=== PATIENT | male | born 1935 ===

== ENCOUNTER 2019-07-20 19:51 | Emergency (ER) | payer SELFPAY ==
[~2019-07-20] VITALS: Ht 165 cm; Wt 81.8 kg
[2019-07-20 20:17] LABS: BASOPHILS % (AUTO) 0 % (0-10); EOSINOPHILS % (AUTO) 0 % (0-10); HEMATOCRIT 51 % (40-54); HEMOGLOBIN 17.6 G/DL (13.3-17.7); LYMPHOCYTES # (AUTO) 1.1 X 10^3 (1.0-4.0); LYMPHOCYTES % (AUTO) 9 % (12-44); MEAN CORPUSCULAR HEMOGLOBIN 32 PG (25-34); MEAN CORPUSCULAR HGB CONC 34 G/DL (32-36); MEAN CORPUSCULAR VOLUME 92 FL (80-99); MEAN PLATELET VOLUME 10.5 FL (7.4-10.4); MONOCYTES # (AUTO) 0.8 X 10^3 (0.0-1.0); MONOCYTES % (AUTO) 6 % (0-12); NEUTROPHILS # (AUTO) 10.3 X 10^3 (1.8-7.8); NEUTROPHILS % (AUTO) 85 % (42-75); PLATELET COUNT 156 10^3/uL (130-400); RED CELL DISTRIBUTION WIDTH 14.4 % (10.0-14.5); WHITE BLOOD COUNT 12.2 10^3/uL (4.3-11.0)
[2019-07-20 20:27] LABS: INR 1.1 (0.8-1.4); PROTHROMBIN TIME PATIENT 14.7 SEC (12.2-14.7)
[2019-07-20 20:33] LABS: ALANINE AMINOTRANSFERASE 17 U/L (0-55); ALBUMIN 3.9 GM/DL (3.2-4.5); ALKALINE PHOSPHATASE 56 U/L (40-136); BUN/CREATININE RATIO 14; CALCIUM 8.8 MG/DL (8.5-10.1); CARBON DIOXIDE 25 MMOL/L (21-32); CHLORIDE 103 MMOL/L (98-107); CREATININE SERUM 0.85 MG/DL (0.60-1.30); GFR ESTIMATED > 60; GLUCOSE 106 MG/DL (70-105); MAGNESIUM 1.9 MG/DL (1.6-2.4); POTASSIUM 4.3 MMOL/L (3.6-5.0); SODIUM 139 MMOL/L (135-145); TOTAL PROTEIN 6.5 GM/DL (6.4-8.2)
--- NOTE | 2019-07-20 20:43 | Diagnostic Imaging Report ---
INDICATION: Chills and malaise. EXAMINATION: Portable erect AP chest at 8:17 p.m. COMPARISON: There are no prior studies available for comparison. FINDINGS: The heart is enlarged. The central pulmonary vascularity is prominent and this appearance does suggest that there is an element of mild pulmonary congestion present. There is also some increased density in the right infrahilar region and to a lesser extent about the left hilum.. There could be an element of mild coexistent pneumonia/atelectasis in these areas as well. The upper lungs are clear. The mediastinum is normal. The osseous structures are intact. IMPRESSION: 1. There is cardiomegaly and mild pulmonary congestion. There also appears to be pneumonia/atelectasis in the right infrahilar region and about the left hilum. 2. Reportedly, CTA of the chest is pending for further study. Dictated by: Dictated on workstation # [id number]
--- NOTE | 2019-07-20 21:04 | ED Chest Pain ---
General Chief Complaint: Cardiac/General Problems Stated Complaint: CHILLS, L SHOULDER PAIN Nursing Triage Note: chills, malaise, left shoulder pain. Nursing Sepsis Screen: No Definite Risk Source: patient Exam Limitations: no limitations History of Present Illness Date Seen by Provider: Jul 20, 2019 Time Seen by Provider: 21:02 Initial Comments To ER with reports of chills, malaise, left scapular pain, shortness of breath. He has emphysema, he is from [facility], traveling here to see family, he just flew to [place] to see another son and is now here in [place]. He has an oxygen concentrator that he uses at night, he has a nebulizer to use during the day. He's had an increased productive cough over the past few days with chills. Severity/Quality: moderate Location: central Radiation: no radiation Activities at Onset: none ASA po PHYSICIAN SCIENTIST: No NTG SL PHYSICIAN SCIENTIST: No Associated Symptoms: shortness of breath Allergies and Home Medications Allergies Coded Allergies: No Known Drug Allergies (Unverified , 07/20/19) Home Medications Losartan Potassium 50 Mg Tablet, Unknown Dose PO DAILY, (Reported) Patient Home Medication List Home Medication List Reviewed: Yes Review of Systems Review of Systems Constitutional: see HPI EENTM: No Symptoms Reported Respiratory: See HPI, Cough, Shortness of Air Cardiovascular: See HPI Gastrointestinal: No Symptoms Reported Genitourinary: No Symptoms Reported Musculoskeletal: no symptoms reported Skin: no symptoms reported Psychiatric/Neurological: No Symptoms Reported Endocrine: No Symptoms Reported Hematologic/Lymphatic: No Symptoms Reported Past Drgvbfu-Knofkq-Ttspue Hx Patient Social History Alcohol Use: Denies Use Recreational Drug Use: No Smoking Status: Never a Smoker 2nd Hand Smoke Exposure: No Recent Foreign Travel: Yes ([facility] citizen) Contact w/Someone Who Travel: Yes Recent Infectious Disease Expo: No Recent Hopitalizations: No Physical Abuse: No Sexual Abuse: No Mistreated: No Fear: No Immunizations Up To Date Tetanus Booster (TDap): Unknown Seasonal Allergies Seasonal Allergies: No Past Medical History Surgeries: Yes Prostatectomy Respiratory: Yes Emphysema Cardiac: Yes Hypertension Neurological: No Genitourinary: Yes Benign Prostatic Hyperpl Gastrointestinal: No Musculoskeletal: No Endocrine: No HEENT: No Cancer: No Psychosocial: No Integumentary: No Blood Disorders: No Physical Exam Vital Signs Vital Signs - First Documented 07/20/19 19:57 Temp 36.9 Pulse 66 Resp 18 B/P (MAP) 147/87 (107) Pulse Ox 92 O2 Delivery Room Air Capillary Refill : Less Than 3 Seconds Height, Weight, BMI Height: '" Weight: lbs. oz. kg; 30.00 BMI Method: General Appearance: No Apparent Distress, WD/WN Neck: Full Range of Motion, Normal Inspection Respiratory: No Accessory Muscle Use, No Respiratory Distress, Decreased Breath Sounds; No Respiratory Distress Cardiovascular: Regular Rate, Rhythm, Normal Peripheral Pulses Gastrointestinal: Normal Bowel Sounds, Non Tender, Soft Neurologic/Psychiatric: Alert, Oriented x3 Skin: Normal Color, Warm/Dry Progress/Results/Core Measures Results/Orders Lab Results Laboratory Tests Test 07/20/19 20:07 Range/Units White Blood Count 12.2 H 4.3-11.0 10^3/uL Red Blood Count 5.59 4.35-5.85 10^6/uL Hemoglobin 17.6 13.3-17.7 G/DL Hematocrit 51 40-54 % Mean Corpuscular Volume 92 80-99 FL Mean Corpuscular Hemoglobin 32 25-34 PG Mean Corpuscular Hemoglobin Concent 34 32-36 G/DL Red Cell Distribution Width 14.4 10.0-14.5 % Platelet Count 156 130-400 10^3/uL Mean Platelet Volume 10.5 H 7.4-10.4 FL Neutrophils (%) (Auto) 85 H 42-75 % Lymphocytes (%) (Auto) 9 L 12-44 % Monocytes (%) (Auto) 6 0-12 % Eosinophils (%) (Auto) 0 0-10 % Basophils (%) (Auto) 0 0-10 % Neutrophils # (Auto) 10.3 H 1.8-7.8 X 10^3 Lymphocytes # (Auto) 1.1 1.0-4.0 X 10^3 Monocytes # (Auto) 0.8 0.0-1.0 X 10^3 Eosinophils # (Auto) 0.0 0.0-0.3 10^3/uL Basophils # (Auto) 0.0 0.0-0.1 10^3/uL Prothrombin Time 14.7 12.2-14.7 SEC INR Comment 1.1 0.8-1.4 Activated Partial Thromboplast Time 34 24-35 SEC Sodium Level 139 135-145 MMOL/L Potassium Level 4.3 3.6-5.0 MMOL/L Chloride Level 103 98-107 MMOL/L Carbon Dioxide Level 25 21-32 MMOL/L Anion Gap 11 5-14 MMOL/L Blood Urea Nitrogen 12 7-18 MG/DL Creatinine 0.85 0.60-1.30 MG/DL Estimat Glomerular Filtration Rate > 60 BUN/Creatinine Ratio 14 Glucose Level 106 H 70-105 MG/DL Calcium Level 8.8 8.5-10.1 MG/DL Corrected Calcium 8.9 8.5-10.1 MG/DL Magnesium Level 1.9 1.6-2.4 MG/DL Total Bilirubin 1.0 0.1-1.0 MG/DL Aspartate Amino Transf (AST/SGOT) 19 5-34 U/L Alanine Aminotransferase (ALT/SGPT) 17 0-55 U/L Alkaline Phosphatase 56 40-136 U/L Myoglobin 47.7 10.0-92.0 NG/ML Troponin I < 0.028 <0.028 NG/ML B-Type Natriuretic Peptide 200.9 H <100.0 PG/ML Total Protein 6.5 6.4-8.2 GM/DL Albumin 3.9 3.2-4.5 GM/DL Micro Results Microbiology 07/20/19 Influenza Types A,B Antigen (MEL) - Final, Complete My Orders Orders - CHAPARRITA HUNTER MEDICAL REGISTRAR BNP (07/20/19 21:01) Azithromycin Tablet (Zithromax Tablet) (07/20/19 21:15) Ceftriaxone For Iv Use (Rocephin For I (07/20/19 21:15) Ct Angio Chest W (07/20/19 21:02) Iohexol Injection (Omnipaque 350 Mg/Ml 1 (07/20/19 21:30) Received Contrast (Hold Metformin- Contr (07/20/19 21:30) Ns (Ivpb) (Sodium Chloride 0.9% Ivpb Bag (07/20/19 21:30) Medications Given in ED Current Medications Medications Dose Ordered Sig/Farhan Route Start Time Stop Time Status Last Admin Dose Admin Ceftriaxone Sodium 1000 mg/ Sterile Water 10 ml @ 200 mls/hr ONCE ONCE IV 07/20/19 21:15 07/20/19 21:17 DC 07/20/19 21:11 200 MLS/HR Iohexol 150 ml ONCE ONCE IV 07/20/19 21:30 07/20/19 21:35 DC 07/20/19 21:27 150 ML Sodium Chloride 100 ml ONCE ONCE IV 07/20/19 21:30 07/20/19 21:35 DC 07/20/19 21:27 80 ML Vital Signs/I&O 07/20/19 07/20/19 19:57 20:07 Temp 36.9 Pulse 66 Resp 18 B/P (MAP) 147/87 (107) Pulse Ox 92 92 O2 Delivery Room Air Room Air Blood Pressure Mean: 107 Departure Impression Primary Impression: Pneumonia Qualified Codes: J18.1 - Lobar pneumonia, unspecified organism Disposition: HOME, SELF-CARE Condition: Stable (will1) Departure-Patient Inst. Decision time for Depature: 22:29 Referrals: NO,LOCAL PHYSICIAN (PCP/Family) Primary Care Physician Patient Instructions: Community-Acquired Pneumonia in Adults Add. Discharge Instructions: 1. Return to ER for any concerns 2. Medication as directed 3. All discharge instructions reviewed with patient and/or family. Voiced understanding. Scripts Prednisone (Prednisone) 20 Mg Tab 40 MG PO DAILY, #8 TAB Prov: CHAPARRITA HUNTER APRN 07/20/19 Azithromycin (Zithromax) 250 Mg Tablet 250 MG PO DAILY, #4 TAB Prov: CHAPARRITA HUNTER APRN 07/20/19 Amoxicillin (Amoxicillin) 500 Mg Tablet 1000 MG PO TID, #42 TAB Prov: CHAPARRITA HUNTER APRN 07/20/19 CHAPARRITA HUNTER APRN Jul 20, 2019 21:04
[2019-07-20] MEDS ORDERED: LOSA50TA63 PO (21:14)
[2019-07-20] MEDS ORDERED: cefTRIAXone FOR IV USE 1,000 MG in WATER (STERILE) FOR INJECTION 10 ML IV ONE (21:15)
[2019-07-20] MEDS ORDERED: AZITHROMYCIN 250 MG TAB (ZITHROMAX) PO SCH (21:15)
[2019-07-20] MEDS ORDERED: IOHEXOL 350 MG/ML 150 ML (OMNIPAQUE 350) VIAL IV ONE (21:30)
[2019-07-20] MEDS ORDERED: HOLD METFORMIN - RECEIVED CONTRAST 20 ML VIAL IV SCH (21:30)
[2019-07-20] MEDS ORDERED: NS 100 ML (IVPB) BAG IV ONE (21:30)
--- NOTE | 2019-07-20 22:24 | Diagnostic Imaging Report ---
PROCEDURE: CT angiography of the chest with contrast. TECHNIQUE: Multiple contiguous axial images were obtained through the chest after uneventful bolus administration of intravenous contrast. 3D reconstructed CTA MIP acquisitions were also performed. Auto Exposure Controls were utilized during the CT exam to meet ALARA standards for radiation dose reduction. INDICATION: Chills, sweats. COMPARISON: There are no prior CT chest examinations available for comparison. FINDINGS: There is no defect within the pulmonary arteries to indicate a pulmonary embolus. The aorta is not abnormally dilated and there is no sign of a dissection. The heart is enlarged and coronary artery calcifications are evident. There is a prominent alveolar/interstitial infiltrate involving the right lung base. Most likely this is secondary to pneumonia/atelectasis. There is also some pneumonia/atelectasis about the right hilum. In addition, there is a poorly defined 2.9 x 3.9 cm right hilar mass. There is also a similar-appearing 1.0 x 4.7 cm left hilar mass. A 1.2 x 4.5 cm band of increased density is also evident in the left hilar region. These abnormal hilar densities could be related to reactive adenopathy secondary to pneumonia/atelectasis. The possibility that they are neoplastic in nature would be less likely since they are bilateral but should still be considered. The thyroid gland is not well visualized due to streak artifact. There does appear to be a few subcentimeter low density nodules in each lobe. If further study is desired, then ultrasound would be recommended. The sections through the upper abdomen failed to show any sign of an acute abnormality. The bone windows are unremarkable for a fracture or for a destructive lesion. IMPRESSION: 1. There is cardiomegaly and a prominent area of pneumonia/atelectasis in the right lung base. There is also some pneumonia/atelectasis about the right hilum. 2. The abnormal hilar densities could be related to reactive adenopathy. The possibility that there is an underlying neoplastic process should certainly be considered. A pulmonary consult would be recommended. 3. There is no evidence for a pulmonary embolus or for dissection. Dictated by: Dictated on workstation # [id number]
[2019-07-20] MEDS ORDERED: AZIT250T PO (22:32)
[2019-07-20] MEDS ORDERED: PRD20T PO (22:32)
[2019-07-20] MEDS ORDERED: AMOX500T2 PO (22:32)
[2019-07-20 22:34] VITALS: BP 126/83
== END 2019-07-20 22:37 | disposition home or self-care (01) ==
LOC: EDBD 19:53 → ER 19:53
DX: J18.9 Pneumonia, unspecified organism (principal); J43.9 Emphysema, unspecified; I10 Essential (primary) hypertension; N40.0 Benign prostatic hyperplasia without lower urinary tract symptoms
CPT/HCPCS: 36415; 71045; 71275; 80053; 83735; 83874; 83880; 84484; 85025; 85610; 85730; 87804; 93005; 93041

== ENCOUNTER 2022-07-22 13:27 | Observation (INO) | payer OTHER ==
[~2022-07-22] VITALS: Ht 165.1 cm; Wt 81.8 kg
[~2022-07-22 13:27] MED LIST: AMOX500T2 PO; AZIT250T PO; LOSA50TA63 PO; PRD20T PO
[2022-07-22] MEDS ORDERED: NS IV 500 ML 500 ML IV ONE (14:15)
[2022-07-22] MEDS ORDERED: fentaNYL INJ 100 MCG/2 ML AMP IVP ONE (14:15)
[2022-07-22 14:16] LABS: BASOPHILS % (AUTO) 0 % (0-10); EOSINOPHILS % (AUTO) 0 % (0-10); HEMOGLOBIN 17.1 g/dL (13.3-17.7); LYMPHOCYTES # (AUTO) 0.6 10^3/uL (1.0-4.0); MEAN CORPUSCULAR HGB CONC 33 g/dL (32-36); MEAN CORPUSCULAR VOLUME 93 fL (80-99)
--- NOTE | 2022-07-22 14:16 | ED Cough/URI ---
General Chief Complaint: COVID19 Suspect/Confirmed Stated Complaint: BODY ACHES/COUGH Nursing Triage Note: ARRIVED VIA AMB TO ROOM 10 WITH COMPLAINTS OF COUGH, X2 DAYS, SOA, BODY ACHES, AND DIARRHEA STARTING TODAY. Source: patient Exam Limitations: no limitations (NOE PRIETO APRN) History of Present Illness Date Seen by Provider: Jul 22, 2022 Time Seen by Provider: 14:10 Initial Comments This is a 87 yo non Romanian speaking male who presented to the ER via POV with son for c/o cough, body aches, abdominal pain, and diarrhea for past two days. He is visiting family from [place] and has no local PCP. Does have history of COPD and A-fib, takes Eliquis BID. He wears oxygen at bedtime and PRN for SOA. Has concentrator at home. Decreased appetite, still drinking fluids well. Feels bloated with left lower abdominal pain. Unknown color of stool. (NOE PRIETO APRN) Allergies and Home Medications Allergies Coded Allergies: No Known Drug Allergies (Unverified , 07/22/22) Patient Home Medication List Home Medication List Reviewed: Yes (NOE PRIETO APRN) Enalapril Maleate (Enalapril Maleate) 20 Mg Tablet, 20 MG PO NEEDED, (Reported) Entered as Reported by: GITA MOHR on 07/22/221627 Last Action: New Order Fluticasone/Umeclidin/Vilanter (Trelegy Ellipta 100-62.5-25) 100-62.5 Blst.w.dev, 1 EACH IH DAILY, (Reported) Entered as Reported by: GITA MOHR on 07/22/221627 Last Action: New Order Tamsulosin HCl (Flomax) 0.4 Mg Cap, 0.4 MG PO DAILY, (Reported) Entered as Reported by: GITA MOHR on 07/22/221627 Last Action: New Order [eliquis] , BID, (Reported) Entered as Reported by: GITA MOHR on 07/22/221627 Last Action: New Order Review of Systems Review of Systems Constitutional: chills, fever, malaise, weakness EENTM: no symptoms reported Respiratory: no symptoms reported, cough, dyspnea on exertion Gastrointestinal: LLQ, abdominal pain, diarrhea; No nausea, No vomiting Genitourinary: no symptoms reported Musculoskeletal: no symptoms reported Skin: no symptoms reported Psychiatric/Neurological: No Symptoms Reported Hematologic/Lymphatic: No Symptoms Reported Immunological/Allergic: no symptoms reported (NOE PRIETO APRN) Past Vlvspoj-Bguopj-Wenqfg Hx Patient Social History Tobacco Use?: No Substance use?: No Alcohol Use?: No (NOE PRIETO APRN) Immunizations Up To Date COVID19 Vaccine Order Department Supervisor: UNKNOWN (NOE PRIETO APRN) Physical Exam Vital Signs - First Documented 07/22/22 13:45 Temp 36.6 Pulse 78 Resp 20 B/P (MAP) 149/90 (109) Pulse Ox 85 O2 Delivery Room Air (ABELARDO SEPULVEDA MD) Capillary Refill : Less Than 3 Seconds (NOE PRIETO APRN) Height: '" Weight: lbs. oz. kg; 29.00 BMI Method: General Appearance: WD/WN, no apparent distress Eyes: Bilateral Eye Normal Inspection, Bilateral Eye PERRL, Bilateral Eye EOMI HEENT: PERRL/EOMI, normal ENT inspection, pharynx normal Neck: full range of motion, normal inspection Respiratory: no respiratory distress, no accessory muscle use, rhonchi Cardiovascular: no edema, no murmur, irregularly irregular Gastrointestinal: normal bowel sounds, distended, tenderness (LLQ) Extremities: normal range of motion, normal inspection, normal capillary refill Neurologic/Psychiatric: no motor/sensory deficits, alert, normal mood/affect, oriented x 3 Skin: normal color, warm/dry (NOE PRIETO APRN) Progress/Results/Core Measures Suspected Sepsis SIRS Temperature: Pulse: 78 Respiratory Rate: 20 Laboratory Tests 07/22/22 14:05: White Blood Count 10.1 Blood Pressure 149 /90 Mean: 109 Laboratory Tests 07/22/22 14:05: Creatinine 0.69, INR Comment 1.2, Platelet Count 139, Total Bilirubin 1.2H (NOE PRIETO APRN) Results/Orders Lab Results Laboratory Tests Test 07/22/22 13:50 07/22/22 14:05 07/22/22 15:00 Range/Units Influenza Type A (RT-PCR) Not Detected Not Detecte Influenza Type B (RT-PCR) Not Detected Not Detecte SARS-CoV-2 RNA (RT-PCR) Not Detected Not Detecte White Blood Count 10.1 4.3-11.0 10^3/uL Red Blood Count 5.61 H 4.30-5.52 10^6/uL Hemoglobin 17.1 13.3-17.7 g/dL Hematocrit 52 40-54 % Mean Corpuscular Volume 93 80-99 fL Mean Corpuscular Hemoglobin 31 25-34 pg Mean Corpuscular Hemoglobin Concent 33 32-36 g/dL Red Cell Distribution Width 14.5 10.0-14.5 % Platelet Count 139 130-400 10^3/uL Mean Platelet Volume 10.4 9.0-12.2 fL Immature Granulocyte % (Auto) 0 % Neutrophils (%) (Auto) 85 H 42-75 % Lymphocytes (%) (Auto) 6 L 12-44 % Monocytes (%) (Auto) 8 0-12 % Eosinophils (%) (Auto) 0 0-10 % Basophils (%) (Auto) 0 0-10 % Neutrophils # (Auto) 8.6 H 1.8-7.8 10^3/uL Lymphocytes # (Auto) 0.6 L 1.0-4.0 10^3/uL Monocytes # (Auto) 0.8 0.0-1.0 10^3/uL Eosinophils # (Auto) 0.0 0.0-0.3 10^3/uL Basophils # (Auto) 0.0 0.0-0.1 10^3/uL Immature Granulocyte # (Auto) 0.0 0.0-0.1 10^3/uL Neutrophils % (Manual) 83 % Lymphocytes % (Manual) 8 % Monocytes % (Manual) 6 % Eosinophils % (Manual) 0 % Basophils % (Manual) 0 % Band Neutrophils 3 % Percent Immature Platelet Fraction 5.6 0.0-7.6 % Blood Morphology Comment NORMAL Prothrombin Time 15.7 H 12.2-14.7 SEC INR Comment 1.2 0.8-1.4 Sodium Level 137 135-145 MMOL/L Potassium Level 4.1 3.6-5.0 MMOL/L Chloride Level 102 98-107 MMOL/L Carbon Dioxide Level 26 21-32 MMOL/L Anion Gap 9 5-14 MMOL/L Blood Urea Nitrogen 10 7-18 MG/DL Creatinine 0.69 0.60-1.30 MG/DL Estimat Glomerular Filtration Rate 88 BUN/Creatinine Ratio 14 Glucose Level 126 H 70-105 MG/DL Calcium Level 8.8 8.5-10.1 MG/DL Corrected Calcium 9.0 8.5-10.1 MG/DL Total Bilirubin 1.2 H 0.1-1.0 MG/DL Aspartate Amino Transf (AST/SGOT) 18 5-34 U/L Alanine Aminotransferase (ALT/SGPT) 15 0-55 U/L Alkaline Phosphatase 56 40-136 U/L C-Reactive Protein High Sensitivity 6.85 H 0.00-0.50 MG/DL B-Type Natriuretic Peptide 177.7 H <100.0 PG/ML Total Protein 7.1 6.4-8.2 GM/DL Albumin 3.8 3.2-4.5 GM/DL Procalcitonin 0.02 <0.10 NG/ML Urine Color YELLOW Urine Clarity CLEAR Urine pH 5.5 5-9 Urine Specific [place] 1.025 H 1.016-1.022 Urine Protein TRACE H NEGATIVE Urine Glucose (UA) NEGATIVE NEGATIVE Urine Ketones NEGATIVE NEGATIVE Urine Nitrite NEGATIVE NEGATIVE Urine Bilirubin 1+ H NEGATIVE Urine Urobilinogen 2.0 < = 1.0 MG/DL Urine Leukocyte Esterase NEGATIVE NEGATIVE Urine RBC (Auto) TRACE-I H NEGATIVE Urine RBC 0-2 /HPF Urine WBC 2-5 /HPF Urine Squamous Epithelial Cells NONE /HPF Urine Renal Epithelial Cells NONE /HPF Urine Crystals NONE /LPF Urine Bacteria NEGATIVE /HPF Urine Casts NONE /LPF Urine Mucus LARGE H /LPF Urine Culture Indicated NO (ABELARDO SEPULVEDA MD) Medications Given in ED Current Medications Medications Dose Ordered Sig/Farhan Route Start Time Stop Time Status Last Admin Dose Admin Cefepime HCl 1000 mg/Sodium Chloride 50 ml @ 100 mls/hr ONCE ONCE IV 07/22/22 16:00 07/22/22 16:29 DC 07/22/22 16:07 100 MLS/HR Fentanyl Citrate 50 mcg ONCE ONCE IVP 07/22/22 14:15 07/22/22 14:16 DC 07/22/22 14:23 50 MCG Iohexol 100 ml ONCE ONCE IV 07/22/22 14:45 07/22/22 14:47 DC 07/22/22 15:09 80 ML Meclizine HCl 25 mg ONCE ONCE PO 07/22/22 15:45 07/22/22 15:46 DC 07/22/22 15:48 25 MG Sodium Chloride 10 ml NEEDED PRN IV 07/22/22 14:45 07/22/22 15:09 10 ML Sodium Chloride 100 ml ONCE ONCE IV 07/22/22 14:45 07/22/22 14:47 DC 07/22/22 15:09 80 ML Sodium Chloride 500 ml @ 0 mls/hr Q0M ONCE IV 07/22/22 14:15 07/22/22 14:16 DC 07/22/22 14:22 1,000 MLS/HR (ABELARDO SEPULVEDA MD) Vital Signs/I&O 07/22/22 07/22/22 07/22/22 13:45 14:00 14:23 Temp 36.6 36.6 Pulse 78 Resp 20 B/P (MAP) 149/90 (109) Pulse Ox 85 O2 Delivery Room Air Room Air (ABELARDO SEPULVEDA MD) Vital Signs/I&O Capillary Refill : Less Than 3 Seconds (NOE PRIETO APRN) Blood Pressure Mean: 109 Progress Note : Progress Note Patient examined and no acute distress. Son at bedside as rod pointer. Took Gas- X at home with some relief of abdominal distention. He is in a-fib, rate controlled 60's. Takes Eliquis BID. COVID, Flu, basic labs, CXR, and CT abd/pelvis with ordered. Labs reviewed. No elevation in WBC, noted to have multi focal pneumonia with right pleural effusion. Added procalcitonin. No SIRS criteria. Given Cefepime 1GM IV in ED. Discussed with Dr. Lewis, will admit observation for pneumonia. (NOE PRIETO APRN) ECG Initial ECG Impression Date: Jul 22, 2022 Initial ECG Impression Time: 14:33 Initial ECG Rate: 66 Initial ECG Rhythm: A Fib/Flutter Initial ECG Impression: Atrial Fibrillation Initial ECG Comparisson: No Previous ECG Available (NOE PRIETO APRN) Diagnostic Imaging Comments [facility]. [place], [place] NAME: ANABELMOTLEY P MED REC#: [id number] PT STATUS: REG ER : 1935 PHYSICIAN: NOE PRIETO APRN ADMIT DATE: 07/22/22/ER Draft Date of Exam:07/22/22 CT ABDOMEN/PELVIS W PROCEDURE: CT abdomen and pelvis with contrast. TECHNIQUE: Multiple contiguous axial images were obtained through the abdomen and pelvis after administration of intravenous contrast. Auto Exposure Controls were utilized during the CT exam to meet ALARA standards for radiation dose reduction. All CT scans use one or more of the following dose optimizing techniques: automated exposure control, MA and/or KvP adjustment based on patient size and exam type or iterative reconstruction. INDICATION: Cough, body pain, diarrheal state. COMPARISON: No priors. FINDINGS: Left colon and much of the transverse colon are nondistended, limiting evaluation of the cabrales at those levels. No obvious wall thickening and no appreciable pericolonic edema or stranding. There is no diverticulitis and there is no large bowel liquid stool load. There is no free air. No obstruction. Liver, gallbladder, bile ducts, spleen, adrenals, and pancreas are unremarkable. We acknowledge sensitivity limitation by motion artifact but an acute-appearing abdominopelvic abnormality is not identified. The appendix is normal. There is atherosclerotic disease without aneurysm, thrombus, or end-organ ischemia. There is no ascites, abscess, hematoma, or acute fluid collection. There is a right pleural effusion, nonloculated, layering to a depth of 6.2 cm. There is some left basilar nonspecific groundglass infiltrate and/or atelectasis. IMPRESSION: No acute-appearing abdominopelvic abnormality. Right pleural effusion and nonspecific left basilar infiltrate or atelectasis. Dictated on workstation # [id number] Dict: 07/22/22 1514 Trans: 07/22/22 1526 [id number] Interpreted by: MADALYN CUEVAS Electronically signed by: Comments [facility] [place], [place] NAME: GISEL LITTLEJosé Jacques MED REC#: [id number] PT STATUS: REG ER : 1935 PHYSICIAN: NOE PRIETO TUNNEL MINER ADMIT DATE: 07/22/22/ER Draft Date of Exam:07/22/22 CHEST 1 VIEW, AP/PA ONLY INDICATION: Cough and body aches. TECHNIQUE: Frontal chest obtained at 02:57 p.m. COMPARISON: There is no prior study for comparison. FINDINGS: There is cardiomegaly. There is extensive infiltrate throughout the left lung. There is some right perihilar and basilar infiltrate as well. There is no pneumothorax. IMPRESSION: Marked cardiomegaly. Extensive infiltrate throughout the left lung with perihilar infiltrate on the right side as well. Consider follow-up chest or chest CT for further evaluation. Dictated on workstation # [id number] Dict: 07/22/22 1459 Trans: 07/22/22 1503 [facility] [id number] Interpreted by: EDER ECHAVARRIA MD Electronically signed by: Esther SANC[facility] [place] [place] NAME: TIESHA LITTLE [facility] REC#: [id number] PT STATUS: REG ER : 1935 PHYSICIAN: NOE PRIETO APRN ADMIT DATE: 07/22/22/ER Draft Date of Exam:07/22/22 CT CHEST WO PROCEDURE: CT chest without contrast. TECHNIQUE: Multiple contiguous axial images were obtained through the chest without the use of intravenous contrast. Auto Exposure Controls were utilized during the CT exam to meet ALARA standards for radiation dose reduction. INDICATION: Infiltrates. FINDINGS: Right pleural effusion is nonloculated. There is patchy ground-glass infiltrate in the left lower lobe. There is more dense consolidation throughout the left upper lobe with tapering and narrowing of the left upper lobe and lingular bronchus. There is more patchy infiltrate in the superior segment of the right lower lobe. There is endobronchial debris within bilateral central airways suggestive of multifocal mucus plugging. There is a component of atelectasis in the left greater than right upper lobes. There is no pneumothorax. There are coronary and aortic atherosclerotic vascular calcifications, nonaneurysmal. There are no findings of pulmonary abscess. IMPRESSION: 1. Bilateral infiltrates and zones of atelectasis with bronchial wall calcifications, thickening, and likely some zones of mucus plugging. Multifocal pneumonia and partial atelectasis presumed. There is a nonloculated right pleural effusion. There are no findings of abscess or features of empyema. Atherosclerotic aorta nonaneurysmal. 2. Visualized upper abdomen nonacute. Dictated on workstation # [id number] Dict: 07/22/22 1519 Trans: 07/22/22 1532 [id number] Interpreted by: MADALYN CUEVAS Electronically signed by: (NOE PRIETO TUNNEL MINER) Departure Communication (Admissions) Time/Spoke to Admitting Phy: 16:00 Dr. Lewis (NOE PRIETO APRN) Impression Primary Impression: Community acquired pneumonia Disposition: ADMITTED INPATIENT Condition: Stable Admissions Decision to Admit Reason: Admit from ER (General) Decision to Admit/Date: Jul 22, 2022 Time/Decision to Admit Time: 15:49 (NOE PRIETO APRN) Departure-Patient Inst. Referrals: NO,LOCAL PHYSICIAN (PCP/Family) Primary Care Physician ATTENDING PHYSICIAN NOTE: I was physically present as attending physician in the emergency department during the care of this patient, but I was not directly involved in the decision making or delivery of care for this patient. (ABELARDO SEPULVEDA MD) NOE PRIETO APRN Jul 22, 2022 14:16 ABELARDO SEPULVEDA MD Jul 22, 2022 20:19
[2022-07-22 14:17] LABS: HEMATOCRIT 52 % (40-54); LYMPHOCYTES % (AUTO) 6 % (12-44); MEAN CORPUSCULAR HEMOGLOBIN 31 pg (25-34); MEAN PLATELET VOLUME 10.4 fL (9.0-12.2); MONOCYTES # (AUTO) 0.8 10^3/uL (0.0-1.0); MONOCYTES % (AUTO) 8 % (0-12); NEUTROPHILS # (AUTO) 8.6 10^3/uL (1.8-7.8); NEUTROPHILS % (AUTO) 85 % (42-75); PLATELET COUNT 139 10^3/uL (130-400); WHITE BLOOD COUNT 10.1 10^3/uL (4.3-11.0)
[2022-07-22 14:21] LABS: ALBUMIN 3.8 GM/DL (3.2-4.5); POTASSIUM 4.1 MMOL/L (3.6-5.0)
[2022-07-22 14:22] LABS: CALCIUM 8.8 MG/DL (8.5-10.1)
[2022-07-22 14:23] LABS: TOTAL PROTEIN 7.1 GM/DL (6.4-8.2)
[2022-07-22 14:25] LABS: BILIRUBIN,TOTAL 1.2 MG/DL (0.1-1.0)
[2022-07-22 14:27] LABS: CREATININE SERUM 0.69 MG/DL (0.60-1.30)
[2022-07-22 14:28] LABS: INR 1.2 (0.8-1.4); PROTHROMBIN TIME PATIENT 15.7 SEC (12.2-14.7)
[2022-07-22] MEDS ORDERED: IOHEXOL 350 MG/ML 100 ML (OMNIPAQUE 350) VIAL IV ONE (14:45)
[2022-07-22] MEDS ORDERED: HOLD METFORMIN - RECEIVED CONTRAST 20 ML VIAL IV SCH (14:45)
[2022-07-22] MEDS ORDERED: CATHETER FLUSH 10 ML SYR IV PRN (14:45)
[2022-07-22] MEDS ORDERED: NS 100 ML (IVPB) BAG IV ONE (14:45)
[2022-07-22 14:50] LABS: BAND NEUTROPHILS 3 %; BASOPHILS % (MANUAL) 0 %; EOSINOPHILS % (MANUAL) 0 %; LYMPHOCYTES % (MANUAL) 8 %; MONOCYTES % (MANUAL) 6 %; NEUTROPHILS % (MANUAL) 83 %
[2022-07-22 14:51] LABS: RBC MORPH NORMAL
--- NOTE | 2022-07-22 15:04 | Diagnostic Imaging Report ---
INDICATION: Cough and body aches. TECHNIQUE: Frontal chest obtained at 02:57 p.m. COMPARISON: There is no prior study for comparison. FINDINGS: There is cardiomegaly. There is extensive infiltrate throughout the left lung. There is some right perihilar and basilar infiltrate as well. There is no pneumothorax. IMPRESSION: Marked cardiomegaly. Extensive infiltrate throughout the left lung with perihilar infiltrate on the right side as well. Consider follow-up chest or chest CT for further evaluation. Dictated by: Dictated on workstation # [id number]
[2022-07-22 15:20] LABS: BILIRUBIN,URINE 1+ (NEGATIVE); CLARITY,URINE CLEAR; COLOR,URINE YELLOW; GLUCOSE, URINE (UA) NEGATIVE (NEGATIVE); KETONES,URINE NEGATIVE (NEGATIVE); LEUKOCYTE ESTERASE ,URINE NEGATIVE (NEGATIVE); NITRITE,URINE NEGATIVE (NEGATIVE); PH,URINE 5.5 (5-9); PROTEIN,URINE TRACE (NEGATIVE)
--- NOTE | 2022-07-22 15:26 | Diagnostic Imaging Report ---
PROCEDURE: CT abdomen and pelvis with contrast. TECHNIQUE: Multiple contiguous axial images were obtained through the abdomen and pelvis after administration of intravenous contrast. Auto Exposure Controls were utilized during the CT exam to meet ALARA standards for radiation dose reduction. All CT scans use one or more of the following dose optimizing techniques: automated exposure control, MA and/or KvP adjustment based on patient size and exam type or iterative reconstruction. INDICATION: Cough, body pain, diarrheal state. COMPARISON: No priors. FINDINGS: Left colon and much of the transverse colon are nondistended, limiting evaluation of the cabrales at those levels. No obvious wall thickening and no appreciable pericolonic edema or stranding. There is no diverticulitis and there is no large bowel liquid stool load. There is no free air. No obstruction. Liver, gallbladder, bile ducts, spleen, adrenals, and pancreas are unremarkable. We acknowledge sensitivity limitation by motion artifact but an acute-appearing abdominopelvic abnormality is not identified. The appendix is normal. There is atherosclerotic disease without aneurysm, thrombus, or end-organ ischemia. There is no ascites, abscess, hematoma, or acute fluid collection. There is a right pleural effusion, nonloculated, layering to a depth of 6.2 cm. There is some left basilar nonspecific groundglass infiltrate and/or atelectasis. IMPRESSION: No acute-appearing abdominopelvic abnormality. Right pleural effusion and nonspecific left basilar infiltrate or atelectasis. Dictated by: Dictated on workstation # [id number]
[2022-07-22 15:27] LABS: BACTERIA,URINE NEGATIVE /HPF; RBC,URINE 0-2 /HPF
--- NOTE | 2022-07-22 15:32 | Diagnostic Imaging Report ---
PROCEDURE: CT chest without contrast. TECHNIQUE: Multiple contiguous axial images were obtained through the chest without the use of intravenous contrast. Auto Exposure Controls were utilized during the CT exam to meet ALARA standards for radiation dose reduction. INDICATION: Infiltrates. FINDINGS: Right pleural effusion is nonloculated. There is patchy ground-glass infiltrate in the left lower lobe. There is more dense consolidation throughout the left upper lobe with tapering and narrowing of the left upper lobe and lingular bronchus. There is more patchy infiltrate in the superior segment of the right lower lobe. There is endobronchial debris within bilateral central airways suggestive of multifocal mucus plugging. There is a component of atelectasis in the left greater than right upper lobes. There is no pneumothorax. There are coronary and aortic atherosclerotic vascular calcifications, nonaneurysmal. There are no findings of pulmonary abscess. IMPRESSION: 1. Bilateral infiltrates and zones of atelectasis with bronchial wall calcifications, thickening, and likely some zones of mucus plugging. Multifocal pneumonia and partial atelectasis presumed. There is a nonloculated right pleural effusion. There are no findings of abscess or features of empyema. Atherosclerotic aorta nonaneurysmal. 2. Visualized upper abdomen nonacute. Dictated by: Dictated on workstation # [id number]
[2022-07-22] MEDS ORDERED: MECLIZINE 25 MG (ANTIVERT) TAB PO ONE (15:45)
[2022-07-22] MEDS ORDERED: CEFEPIME INJECTION 1,000 MG in NS (IVPB) 50 ML IV ONE (16:00)
[2022-07-22] MEDS ORDERED: FLUT1BLS3 IH (16:28)
[2022-07-22] MEDS ORDERED: ENAL20TA16 PO (16:28)
[2022-07-22] MEDS ORDERED: eliquis (16:28)
[2022-07-22] MEDS ORDERED: TMSL.4C PO (16:28)
[2022-07-22 17:21] VITALS: BP 146/72
[2022-07-22] MEDS ORDERED: ACETAMINOPHEN 325 MG TABLET PO PRN (17:45)
[2022-07-22] MEDS ORDERED: guaiFENesin SYRUP 100 MG/5 ML 10 ML (ROBITUSSIN SF) PO PRN (17:45)
[2022-07-22] MEDS ORDERED: NS IV 1000 ML 1,000 ML IV SCH (17:45)
[2022-07-22] MEDS ORDERED: ONDANSETRON 4 MG/2 ML (SDV) Z0FRAN IV PRN (17:45)
[2022-07-22] MEDS: NS IV 1000 ML 1,000 ML IV SCH (17:54)
[2022-07-22 19:53] VITALS: BP 129/74
[2022-07-22] MEDS: RT-ALBUTEROL/IPRATROPIUM 3 ML (DUONEB) VIAL IH SCH (23:17)
[2022-07-22] MEDS: CEFEPIME 1,000 MG/NS 50 ML IVPB IV SCH ×2 (23:33)
[2022-07-22 23:35] VITALS: BP 138/78
[2022-07-23 04:04] VITALS: BP 140/80
[2022-07-23] MEDS: RT-ALBUTEROL/IPRATROPIUM 3 ML (DUONEB) VIAL IH SCH ×5 (05:33→22:45)
[2022-07-23] MEDS: SIMETHICONE 80 MG (MYLICON) CHEW PO PRN ×2 (06:39→15:48)
[2022-07-23 07:28] VITALS: BP 150/91
[2022-07-23] MEDS ORDERED: NS (IVPB) 50 ML ONE (08:14)
[2022-07-23] MEDS: CEFEPIME 1,000 MG/NS 50 ML IVPB IV SCH ×6 (08:19→23:22)
[2022-07-23 08:37] VITALS: BP 145/88
[2022-07-23] MEDS ORDERED: RT-ALBUTEROL/IPRATROPIUM 3 ML (DUONEB) VIAL INH PRN (08:45)
--- NOTE | 2022-07-23 10:23 | History & Physical ---
BERNADETTE CUMMINGS 07/23/22 1023: History of Present Illness History of Present Illness Reason for visit/HPI Reason for visit: Shortness of breath and abdominal pain HPI: Narinder is a 87yo M with a past medical history of COPD, atrial fibrillation, and hypertension. The patient is from [place] and is visiting his son currently. He presented to the emergency room yesterday 07/22/22 with shortness of breath and abdominal pain. He has had a cough the past three days and yesterday he developed intermittent sharp LLQ abdominal pain. He also reported having diffuse body aches and diarrhea. In the emergency room the patient was hypoxic at 85% and put on oxygen via nasal cannula. The patient's son says that the patient is at 85% at baseline. At home he uses 2.5L/min portable oxygen at night and throughout the day as needed. He has been using the portable oxygen more often the past two days because he has felt short of breath. The patient had CRP 6.85, total bilirubin 1.2, and BNP 177. He was in atrial fibrillation with rate control. Chest X-ray showed cardiomegaly and bilateral infiltrates. Chest CT showed endobronchial debris within bilateral central airways, the patient had vomited right before this CT was done after receiving fentanyl. Abdominal and pelvic CT did not show any acute findings. He was admitted for acute on chronic respiratory failure due to COPD exacerbation caused by multifocal pneumonia. At the beginning of the interview today, the patient was laying in bed awake. He reports feeling constipated and has not had a bowel movement since yesterday afternoon. Patient is unsure if he has seen any bloody or dark stools recently. He is still experiencing the sharp intermittent abdominal pain from yesterday but that it improves with pain medication. The patient reports having some shortness of breath when he gets up to use the restroom but he says that is normal for him. He has been coughing up yellow phlegm. He is on oxygen 3L/min nasal cannula currently. Date of Admission Jul 22, 2022 at 16:05 Date Seen by a Provider: Jul 23, 2022 Time Seen by a Provider: 08:45 I consulted on this patient on 07/23/22 10:11 Attending Physician No,Local Physician Admitting Physician Admitting Physician: Nedra Horan MD Attending Physician: Nedra Horan MD Consult Allergies and Home Medications Allergies Coded Allergies: No Known Drug Allergies (Unverified , 07/20/19) Patient Home Medication List Apixaban (Eliquis) 5 Mg Tablet, 2.5 MG PO DAILY, (Reported) Entered as Reported by: AFTAB DAVIS on 07/23/22 1036 Last Action: Continued Azithromycin (Azithromycin) 250 Mg Tablet, 250 MG PO DAILY Prescribed by: NEDRA HORAN on 07/24/22 1012 Cephalexin (Cephalexin) 500 Mg Tablet, 500 MG PO BID Prescribed by: NEDRA HORAN on 07/24/22 1012 Fluticasone/Umeclidin/Vilanter (Trelegy Ellipta 100-62.5-25) 100-62.5 Blst.w.dev, 1 EACH IH DAILY, (Reported) Entered as Reported by: GITA MOHR on 07/22/221627 Last Action: Reviewed Ipratropium/Albuterol Sulfate (Iprat-Albut 0.5-3(2.5) mg/3 ml) 0.5 Mg-3 Mg (2.5 Mg Base)/3 Ml Ampul.neb, 3 ML IH Q4H PRN for SHORTNESS OF BREATH Prescribed by: NEDRA HORAN on 07/24/22 1014 Losartan Potassium (Losartan Potassium) 50 Mg Tablet, Unknown Dose PO DAILY, (Reported) Entered as Reported by: NILE GUZMAN on 07/20/192113 Melatonin (Melatonin) 10 Mg Tablet, 10 MG PO HS, (Reported) Entered as Reported by: AFTAB DAVIS on 07/23/22 1036 Last Action: Reviewed Prednisone (Prednisone) 20 Mg Tab, 40 MG PO DAILY Prescribed by: NEDRA HORAN on 07/24/22 1012 Tamsulosin HCl (Flomax) 0.4 Mg Cap, 0.4 MG PO DAILY, (Reported) Entered as Reported by: GITA MOHR on 07/22/22 162 Last Action: Reviewed [Enalapr/Lercandipine] 20-10 TAB, 1 EA PO DAILY, (Reported) Entered as Reported by: AFTAB DAVIS on 07/23/22 1036 Last Action: Reviewed Discontinued Medications Amoxicillin (Amoxicillin) 500 Mg Tablet, 1,000 MG PO TID Prescribed by: CHAPARRITA HUNTER on 10/16/19 2232 Azithromycin (Zithromax) 250 Mg Tablet, 250 MG PO DAILY Prescribed by: CHAPARRITA HUNTER on 07/20/192231 Enalapril Maleate (Enalapril Maleate) 20 Mg Tablet, 20 MG PO NEEDED, (Reported) Discontinued Reason: Prescription changed Entered as Reported by: GITA MOHR on 07/22/221627 Last Action: New Order Prednisone (Prednisone) 20 Mg Tab, 40 MG PO DAILY Prescribed by: CHAPARRITA HUNTER on 07/20/192231 [eliquis] , BID, (Reported) Discontinued Reason: Duplicate Order Entered as Reported by: GITA MOHR on 07/22/221627 Last Action: Discontinued Past Zappbky-Znyvhq-Snarmu Hx Patient Social History Living Status: Lives in [place], is satying with his son while he visits Employed/Student: retired Tobacco Use?: No Smokeless Tobacco Frequency: Never a User Use of E-Cig and/or Vaping dev: No Substance use?: No Alcohol Use?: Yes Alcohol type: Beer Alcohol Frequency: Once in a while Pt feels they are or have been: No Immunizations Up To Date Tetanus Booster (TDap): Unknown Seasonal Allergies Seasonal Allergies: No Current Status Advance Directives: No Communicates: Verbally Primary Language: Barbadian Preferred Spoken Language: Barbadian Is interpretation needed?: Yes Sensory deficits: Hearing impairment Implanted or Applied Medical D: None Past Medical History COPD Atrial Fibrillation, Hypertension Prostate Problems Review of Systems Constitutional: No chills, No fever; weakness EENTM: No hearing loss, No vision loss, No nose congestion, No throat pain Respiratory: cough, phlegm (yellow and brown), short of breath (with exertion), wheezing (chronic) Cardiovascular: No chest pain, No edema, No palpitations Gastrointestinal: abdominal pain (LLQ), constipation; No loss of appetite, No nausea, No vomiting Genitourinary: No decreased output, No dysuria Musculoskeletal: No joint pain, No joint swelling Skin: No change in color, No rash Psychiatric/Neurological: Denies Headache, Denies Numbness Physical Exam Vital Signs Vital Signs - First Documented 07/22/22 07/22/22 07/23/22 13:45 16:59 06:49 Temp 36.6 Pulse 78 Resp 20 B/P (MAP) 149/90 (109) Pulse Ox 85 O2 Delivery Room Air O2 Flow Rate 2.00 FiO2 32 Capillary Refill : Less Than 3 Seconds Height, Weight, BMI Height: '" Weight: lbs. oz. kg; 30.00 BMI Method: General Appearance: No Apparent Distress, WD/WN Respiratory: Crackles (left sided), Wheezing (audible wheezing heard from across the room) Cardiovascular: Regular Rate, Rhythm, No Edema, No JVD, No Murmur Gastrointestinal: No Organomegaly, No Pulsatile Mass, Distended, Tenderness (LLQ) Back: Normal Inspection, No Vertebral Tenderness Extremity: Normal Capillary Refill, Normal Inspection, Normal Range of Motion, Non Tender, No Calf Tenderness, No Pedal Edema Neurologic/Psychiatric: Alert, Oriented x3, Normal Mood/Affect Skin: Normal Color, Warm/Dry Assessment/Plan Assessment and Plan 1) Acute on chronic respiratory failure due to COPD exacerbation caused by multifocal pneumonia - patient is currently on 3L/min nasal cannula which is what he uses at home as needed and at night, patient will have oxygen decreased to 2L/min and response will be monitored - IV Cefepime 50ml@100mls/hr Q8hrs started to treat the pneumonia - CURB-65 score of 1 so outpatient treatment can be considered once his hypoxia resolves - serology is still pending - PO Prednisoe 40mg 1xD for COPD exacerbation - virtual pulmonology is being consulted in regards to the chest CT that showed endobronchial debris, possibly due from aspiration after the patient vomited yesterday - Guaifenesin 200mg Q4hrs - Albuterol/ Ipratropium 3ml Q2hrs 2) Atrial fibrillation - patient is no longer in atrial fibrillation - patient is currently on telemetry - restart home medication Eliquis 5mg BID 3) Abdominal pain - possibly from diarrhea and constipation he has been having - docusate 240mg 1xD 4) DVT prophylaxis - home medication Eliquis has been restarted Admission Diagnosis Admission Status: Inpatient Order (span 2 midnights) Reason for Inpatient Admission: Hypoxia with abnormal CT findings NEDRA HORAN MD 07/23/22 1444: Allergies and Home Medications Allergies Coded Allergies: No Known Drug Allergies (Unverified , 07/20/19) Patient Home Medication List Home Medication List Reviewed: Yes Apixaban (Eliquis) 5 Mg Tablet, 2.5 MG PO DAILY, (Reported) Entered as Reported by: AFTAB DAVIS on 07/23/22 103 Last Action: Continued Azithromycin (Azithromycin) 250 Mg Tablet, 250 MG PO DAILY Prescribed by: NEDRA HORAN on 07/24/22 1012 Cephalexin (Cephalexin) 500 Mg Tablet, 500 MG PO BID Prescribed by: NEDRA HORAN on 07/24/22 1012 Fluticasone/Umeclidin/Vilanter (Trelegy Ellipta 100-62.5-25) 100-62.5 Blst.w.dev, 1 EACH IH DAILY, (Reported) Entered as Reported by: GITA MOHR on 07/22/221627 Last Action: Reviewed Ipratropium/Albuterol Sulfate (Iprat-Albut 0.5-3(2.5) mg/3 ml) 0.5 Mg-3 Mg (2.5 Mg Base)/3 Ml Ampul.neb, 3 ML IH Q4H PRN for SHORTNESS OF BREATH Prescribed by: NEDRA HORAN on 07/24/22 1014 Losartan Potassium (Losartan Potassium) 50 Mg Tablet, Unknown Dose PO DAILY, (Reported) Entered as Reported by: NILE GUZMAN on 07/20/192113 Melatonin (Melatonin) 10 Mg Tablet, 10 MG PO HS, (Reported) Entered as Reported by: AFTAB DAVIS on 07/23/221035 Last Action: Reviewed Prednisone (Prednisone) 20 Mg Tab, 40 MG PO DAILY Prescribed by: NEDRA HORAN on 07/24/22 1012 Tamsulosin HCl (Flomax) 0.4 Mg Cap, 0.4 MG PO DAILY, (Reported) Entered as Reported by: GITA MOHR on 07/22/221627 Last Action: Reviewed [Enalapr/Lercandipine] 20-10 TAB, 1 EA PO DAILY, (Reported) Entered as Reported by: AFTAB DAVIS on 07/23/22 103 Last Action: Reviewed Discontinued Medications Amoxicillin (Amoxicillin) 500 Mg Tablet, 1,000 MG PO TID Prescribed by: CHAPARRITA HUNTER on 07/20/192231 Azithromycin (Zithromax) 250 Mg Tablet, 250 MG PO DAILY Prescribed by: CHAPARRITA HUNTER on 07/20/192231 Enalapril Maleate (Enalapril Maleate) 20 Mg Tablet, 20 MG PO NEEDED, (Reported) Discontinued Reason: Prescription changed Entered as Reported by: GITA MOHR on 07/22/221627 Last Action: New Order Prednisone (Prednisone) 20 Mg Tab, 40 MG PO DAILY Prescribed by: CHAPARRITA HUNTER on 07/20/19 2232 [eliquis] , BID, (Reported) Discontinued Reason: Duplicate Order Entered as Reported by: GITA MOHR on 07/22/221627 Last Action: Discontinued Assessment/Plan Assessment and Plan Patient is an 87-year-old male who is visiting from [place] with a past medical 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 He was found to have pneumonia in the emergency department and was hypoxic to the 80s so was admitted for further management. He has been started on IV antibiotics and reports doing well. He was having diarrhea yesterday but now complains of bloating and constipation today. He reports his breathing is much better. He is wheezing still but patient reports that this is his baseline and he feels well. We will continue him on IV antibiotics. I am awaiting a urine Legionella antigen due to the pneumonia and GI symptoms. I will also consult pulmonology given his significant emphysema and endobronchial debris. If he continues to do well I have hopeful that he will be able to discharge home tomorrow. Admission Diagnosis Admission Status: Observation Supervisory-Addendum Brief Verification & Attestation Participated in pt care: history, MDM, physical Personally performed: exam, history, MDM, supervision of care Care discussed with: Medical Student Procedures: n/a Results interpretation: Verified all documentation Verification and Attestation of Medical Student E/M Service A medical student performed and documented this service in my presence. I revie wed and verified all information documented by the medical student and made modifications to such information, when appropriate. I personally performed the physical exam and medical decision making. Nedra Horan, Jul 23, 2022,14:44 BERNADETTE CUMMINGS Jul 23, 2022 10:23 NEDRA HORAN MD Jul 23, 2022 14:44
[2022-07-23] MEDS ORDERED: MELA10TA2 PO (10:36)
[2022-07-23] MEDS ORDERED: APIX5TAB PO (10:36)
[2022-07-23] MEDS ORDERED: [UNRECOGNIZED DRUG - OTHER] PO (10:36)
[2022-07-23 11:23] VITALS: BP 152/84
--- NOTE | 2022-07-23 13:29 | Pulmonary Consultation ---
History of Present Illness History of Present Illness Date Seen by Provider: Jul 23, 2022 Time Seen by Provider: 13:31 History of Present Illness from chart : " Narinder is a 87yo M with a past medical history of COPD, atrial fibrillation, and hypertension. He presented to the emergency room yesterday 07/22/22 with shortness of breath. He has had a cough the past three days and yesterday he developed intermittent sharp LLQ abdominal pain. He also reported having diffuse body aches and diarrhea. Patient was hypoxic at 85% and put on oxygen via nasal cannula. The patient's son says that the patient is at 85% at baseline. At home he uses 2.5L/min portable oxygen at night and throughout the day as needed. 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 - [employer] " using nebs bid at home - FORGOT TO BRING NEB to here on O2 - using at night ( usually Sao2 - 85-90 on ra ) - HAS [id number] here can walk 1 block baseline no cough normally hemoptysis none weight loss none steroid use INPATIENT SERVICES RN / chronic- none skin rash lesions none working/exposed to soil NO exposed to birds/ bats NO exposed to animal/ manure (NO Frequent exacerbations of COPD- NO CT chest 2019 in [place] - dx with PNA - was treated and was doing well HPI Arrived to [place] 3 weeks ago , was doing well 3 days ago felt weak , cough , minimal sputum -> worse ladt night , yesterday had diarrhea x1 no chest pain no w, fells better fever INPATIENT SERVICES RN- none A/P CAP CT with LIAM occupying lingula and part of LAIM ( B3, B4, B5 ) - despite opacity seen on CXR , LLL is actually unaffected - possible mucous plug given fact he was not using his nebs 3 weeks -low for TB ( reports no contact , no h/o TB , no weigh loss no fever - low risk for Histoplasmosis, Brucellosis are = usual cap coverage advised now, sputum cx , pulm toilet Combination of PNA and diarrhea - Legionnaires' disease ? - AG pending ( ABSENCE of eosinophylia decrease suspisios for fungal infection , strongyloidosis Right effusion -[address] , no obvious locations, no corresponding PNA - etiology is not clear COPD - use O2 at home - advised continuous O2 A-fib, -on Eliquis BID INPATIENT SERVICES RN Diarrhea - CT abd/pelvis - no acute abnormalities - resolved can not appreciate any obstructing mass on current CT m but had LAD , [place] [address] - ? CA RECOMMENDATIONS -Tx with abx for CAP - needs nebs equipment , cont neb tid , flatter valve , pulm toilet - recom f/up CT in 3-4 weeks - migh need thoracentesis and bronchoscopy with biopsy - use O2 continuously for now , including plane discussed with patient . son , all questions answered discussed with Fr Lewis Allergies and Home Medications Allergies Coded Allergies: No Known Drug Allergies (Unverified , 07/20/19) Home Medications Amoxicillin 500 Mg Tablet, 1,000 MG PO TID Prescribed by: HCAPARRITA HUNTER on 07/20/192231 Apixaban 5 Mg Tablet, 2.5 MG PO DAILY, (Reported) TAKES OF A 5NG Azithromycin 250 Mg Tablet, 250 MG PO DAILY Prescribed by: CHAPARRITA HUNTER on 07/20/192231 Fluticasone/Umeclidin/Vilanter 100-62.5 Blst.w.dev, 1 EACH IH DAILY, (Reported) Losartan Potassium 50 Mg Tablet, Unknown Dose PO DAILY, (Reported) Melatonin 10 Mg Tablet, 10 MG PO HS, (Reported) Prednisone 20 Mg Tab, 40 MG PO DAILY Prescribed by: CHAPARRITA HUNTER on 07/20/192231 Tamsulosin HCl 0.4 Mg Cap, 0.4 MG PO DAILY, (Reported) [Enalapr/Lercandipine] 20-10 TAB, 1 EA PO DAILY, (Reported) COMBINATION ENALAPRIL 20MG/LERCARDIPINE 10MG Past Medical/Social/Family Hx Patient Social History Tobacco Use?: No Use of E-Cig and/or Vaping dev: No Substance use?: No Alcohol Use?: No Pt stated abuse/neglect: No Immunizations Up To Date Influenza Vaccine Up-to-Date: No; Not Current Tetanus Booster (TDap): Unknown Current Status Advance Directives: No Communicates: Verbally Primary Language: Malagasy Preferred Spoken Language: Malagasy Is interpretation needed?: Yes Sensory deficits: Hearing impairment Implanted or Applied Medical D: None Review of Systems Constitutional: see HPI Sepsis Event Evaluation Height, Weight, BMI Height: '" Weight: lbs. oz. kg; 30.00 BMI Method: Exam Exam Patient acknowledged, consented, and participated in this virtual visit which was conducted using real time audio/video Vital Signs Date Time Temp Pulse Resp B/P (MAP) Pulse Ox O2 Delivery O2 Flow Rate FiO2 07/23/22 11:23 36.7 67 18 152/84 (106) 91 Nasal Cannula 3.00 07/23/22 10:49 95 Nasal Cannula 3.00 07/23/22 08:37 69 20 145/88 (107) 95 Nasal Cannula 3.00 07/23/22 08:00 94 Nasal Cannula 3.00 07/23/22 07:28 36.6 65 20 150/91 (110) 94 Nasal Cannula 3.00 07/23/22 07:26 85 07/23/22 06:49 94 Nasal Cannula 3.00 07/23/22 06:49 82 94 32 07/23/22 04:04 36.7 64 26 140/80 (100) 95 Nasal Cannula 3.00 07/23/22 01:00 87 07/22/22 23:35 36.6 56 28 138/78 (98) 96 Nasal Cannula 3.00 07/22/22 21:00 Nasal Cannula 3.00 07/22/22 20:03 Nasal Cannula 3.00 07/22/22 19:53 36.8 55 28 129/74 (92) 97 Nasal Cannula 3.00 07/22/22 19:00 88 07/22/22 17:59 88 07/22/22 17:21 36.2 53 20 146/72 (96) 95 Nasal Cannula 3.00 07/22/22 17:00 95 Nasal Cannula 3.00 07/22/22 16:59 36.0 55 20 112/68 98 Nasal Cannula 2.00 07/22/22 14:23 36.6 07/22/22 14:00 Room Air 07/22/22 13:45 36.6 78 20 149/90 (109) 85 Room Air I & O 07/23/22 07:00 Intake Total 1122 ml Balance 1122 ml Height & Weight Height: '" Weight: lbs. oz. kg; 30.00 BMI Method: General Appearance: No Apparent Distress Capillary Refill: Less Than 3 Seconds Gastrointestinal: normal bowel sounds, distended, tenderness (LLQ) Results Lab Laboratory Tests 07/22/22 14:05 Assessment/Plan Assessment/Plan 1 TREY RAYMUNDO MD Jul 23, 2022 13:29
[2022-07-23] MEDS ORDERED: MECLIZINE 25 MG (ANTIVERT) TAB PO PRN ×2 (13:30→14:00)
[2022-07-23] MEDS: NS IV 1000 ML 1,000 ML IV SCH (14:01)
[2022-07-23 16:10] VITALS: BP 128/80
[2022-07-23 19:30] VITALS: BP 132/73
[2022-07-23] MEDS ORDERED: APIXABAN 5 MG (ELIQUIS) TABLET PO SCH (21:45)
[2022-07-23] MEDS ORDERED: APIXABAN 2.5 MG (ELIQUIS) TABLET ONE (23:17)
[2022-07-24 00:01] VITALS: BP 150/76
[2022-07-24] MEDS: RT-ALBUTEROL/IPRATROPIUM 3 ML (DUONEB) VIAL IH SCH ×4 (02:57→15:03)
[2022-07-24] MEDS ORDERED: methylPREDNISolone 40 MG/ML (Solu-MEDROL) VIAL ONE (03:24)
[2022-07-24] MEDS ORDERED: FUROSEMIDE 40 MG/4 ML INJ (LASIX) ONE (03:24)
[2022-07-24] MEDS ORDERED: FUROSEMIDE 40 MG/4 ML INJ (LASIX) IVP ONE (03:30)
[2022-07-24] MEDS: SIMETHICONE 80 MG (MYLICON) CHEW PO PRN (03:46)
[2022-07-24 04:11] VITALS: BP 140/85
[2022-07-24 05:54] LABS: HEMATOCRIT 53 % (40-54); HEMOGLOBIN 17.4 g/dL (13.3-17.7); MEAN CORPUSCULAR HEMOGLOBIN 31 pg (25-34); MEAN CORPUSCULAR HGB CONC 33 g/dL (32-36); MEAN CORPUSCULAR VOLUME 94 fL (80-99); MEAN PLATELET VOLUME 11.3 fL (9.0-12.2); PLATELET COUNT 150 10^3/uL (130-400); WHITE BLOOD COUNT 10.2 10^3/uL (4.3-11.0)
[2022-07-24] MEDS ORDERED: methylPREDNISolone 40 MG/ML (Solu-MEDROL) VIAL IV SCH (06:00)
[2022-07-24 06:11] LABS: CALCIUM 9.5 MG/DL (8.5-10.1); CREATININE SERUM 0.8 MG/DL (0.60-1.30); POTASSIUM 3.9 MMOL/L (3.6-5.0)
[2022-07-24 07:30] VITALS: BP 132/71
[2022-07-24] MEDS: CEFEPIME 1,000 MG/NS 50 ML IVPB IV SCH ×2 (08:33)
[2022-07-24] MEDS ORDERED: APIXABAN 5 MG (ELIQUIS) TABLET PO SCH (09:00)
[2022-07-24] MEDS ORDERED: CEPH500T PO (10:12)
[2022-07-24] MEDS ORDERED: AZIT250T12 PO (10:12)
[2022-07-24] MEDS ORDERED: PRD20T PO (10:12)
[2022-07-24] MEDS ORDERED: IPRA3AMP31 IH (10:14)
[2022-07-24] MEDS ORDERED: APIXABAN 2.5 MG (ELIQUIS) TABLET PO SCH (10:14)
[2022-07-24] MEDS: NS IV 1000 ML 1,000 ML IV SCH (10:16)
--- NOTE | 2022-07-24 10:16 | Discharge Inst-Simple/Standard ---
Discharge Inst-Standard Discharge Medications New, Converted or Re-Newed RX: Transmitted to Pharmacy Patient Instructions/Follow Up Plan of Care/Instructions/FU: Please continue to take your medications as written. Please follow up with your primary care doctor to follow up this hospital stay. Activity as Tolerated: Yes Discharge Diet: No Restrictions Return to The Hospital For: Chest pain, shortness of breath, fever, weakness, if you feel you are getting worse. NEDRA HORAN MD Jul 24, 2022 10:16
[2022-07-24] MEDS ORDERED: APIXABAN 2.5 MG (ELIQUIS) TABLET ONE (10:19)
[2022-07-24 11:28] VITALS: BP 130/66
--- NOTE | 2022-07-24 12:00 | Discharge Summary ---
BERNADETTE CUMMINGS 07/24/22 1200: Diagnosis/Chief Complaint Date of Admission Jul 22, 2022 at 16:05 Date of Discharge Jul 24, 2022 Discharge Date: Jul 24, 2022 Admission Diagnosis COPD exacerbation Primary Care No,Local Physician Discharge Diagnosis COPD exacerbation Discharge Summary Discharge Physical Exam Allergies: Coded Allergies: No Known Drug Allergies (Unverified , 07/20/19) Vitals & I&Os Vital Signs Date Time Temp Pulse Resp B/P (MAP) Pulse Ox O2 Delivery O2 Flow Rate FiO2 07/24/22 11:28 36.6 65 18 130/66 (87) 94 Nasal Cannula 3.50 07/23/22 06:49 32 General Appearance: No Apparent Distress, WD/WN HEENT: Moist Mucous Membranes Respiratory: Chest Non Tender, No Accessory Muscle Use, No Respiratory Dis tress, Wheezing (Wheezing with inhalation and exhalation) Cardiovascular: Regular Rate, Rhythm, No Edema, No Murmur Gastrointestinal: No Pulsatile Mass, Non Tender, Soft Extremity: Normal Inspection, Normal Range of Motion, No Pedal Edema Skin: Normal Color, Warm/Dry Neurologic/Psychiatric: Alert, Oriented x3, Normal Mood/Affect Hospital Course Narinder is a 87yo M with a past medical history of COPD, atrial fibrillation, and hypertension. The patient is from [place] and is visiting his son currently. He presented to the emergency room on 07/22/22 with shortness of breath and abdominal pain. He has had a cough the previous three days and he developed intermittent sharp LLQ abdominal pain the day before coming to the ER. He also reported having diffuse body aches and diarrhea. In the emergency room the patient was hypoxic at 85% and put on oxygen via nasal cannula. The patient's s on says that the patient is at 85% at baseline. At home he uses 2.5L/min portable oxygen at night and throughout the day as needed. He has been using the portable oxygen more often the past two days because he has felt short of breath. The patient had CRP 6.85, total bilirubin 1.2, and BNP 177. He was in atrial fibrillation with rate control. Chest X-ray showed cardiomegaly and jan ateral infiltrates. Chest CT showed endobronchial debris within bilateral central airways, the patient had vomited right before this CT was done after receiving fentanyl. Abdominal and pelvic CT did not show any acute findings. He was admitted for acute on chronic respiratory failure due to COPD exacerbation caused by multifocal pneumonia. The patient was treated with IV antibiotics for his pneumonia and will be sent home on oral medications. He was on oxygen 3L/min nasal cannula while here which is what he normally uses at home. His cough and SOB improved during his stay here. Pulmonology was consulted for CT chest findings and it was suggested that the patient follows up with his primary in [place]. The patient does not have his nebulizer medication with him in the [facility] so he will need a refill of that to go home. The patient was sitting up in bed this morning and reported that he was eager to go home. Labs (last 24 hrs) Laboratory Tests 07/24/22 05:28: White Blood Count 10.2, Red Blood Count 5.66H, Hemoglobin 17.4, Hematocrit 53, Mean Corpuscular Volume 94, Mean Corpuscular Hemoglobin 31, Mean Corpuscular Hemoglobin Concent 33, Red Cell Distribution Width 14.5, Platelet Count 150, Mean Platelet Volume 11.3, Sodium Level 141, Potassium Level 3.9, Chloride Level 102, Carbon Dioxide Level 27, Anion Gap 12, Blood Urea Nitrogen 11, Creatinine 0 .80, Estimat Glomerular Filtration Rate 85, BUN/Creatinine Ratio 14, Glucose Level 128H, Calcium Level 9.5 Microbiology 07/22/22 Blood Culture - Preliminary, Resulted No growth Patient resulted labs reviewed. Pending Labs Laboratory Tests 07/24/22 05:28: White Blood Count 10.2, Red Blood Count 5.66, Hemoglobin 17.4, Hematocrit 53, Mean Corpuscular Volume 94, Mean Corpuscular Hemoglobin 31, Mean Corpuscular Hemoglobin Concent 33, Red Cell Distribution Width 14.5, Platelet Count 150, Mean Platelet Volume 11.3, Sodium Level 141, Potassium Level 3.9, Chloride Level 102, Carbon Dioxide Level 27, Anion Gap 12, Blood Urea Nitrogen 11, Creatinine 0.80, Estimat Glomerular Filtration Rate 85, BUN/Creatinine Ratio 14, Glucose Level 128, Calcium Level 9.5 Discussion & Recommendations Discharge Planning: >30 minutes discharge planning Discharge Home Medications: Active Scripts Active Iprat-Albut 0.5-3(2.5) mg/3 ml (Ipratropium/Albuterol Sulfate) 0.5 Mg-3 Mg (2.5 Mg Base)/3 Ml Ampul.neb 3 Ml IH Q4H PRN Azithromycin 250 Mg Tablet 250 Mg PO DAILY Cephalexin 500 Mg Tablet 500 Mg PO BID Prednisone 20 Mg Tab 40 Mg PO DAILY 3 Days Prednisone 20 Mg Tab 40 Mg PO DAILY Zithromax (Azithromycin) 250 Mg Tablet 250 Mg PO DAILY Amoxicillin 500 Mg Tablet 1,000 Mg PO TID Reported Melatonin 10 Mg Tablet 10 Mg PO HS Eliquis (Apixaban) 5 Mg Tablet 2.5 Mg PO DAILY TAKES OF A 5NG [Enalapr/Lercandipine] 20-10 Tab 1 Ea PO DAILY COMBINATION ENALAPRIL 20MG/LERCARDIPINE 10MG Flomax (Tamsulosin HCl) 0.4 Mg Cap 0.4 Mg PO DAILY Trelegy Ellipta 100-62.5-25 (Fluticasone/Umeclidin/Vilanter) 100-62.5 Blst.w.dev 1 Each IH DAILY Losartan Potassium 50 Mg Tablet Unknown Dose PO DAILY Instructions to patient/family Please see electronic discharge instructions given to patient. Clinical Quality Measures Admission Status Admission Dx 1) Acute on chronic respiratory failure due to COPD exacerbation caused by multifocal pneumonia - patient is currently on 3L/min nasal cannula which is what he uses at home as needed and at night - IV Cefepime 50ml@100mls/hr changed to PO Cefdinir 300mg 2xD for 5 days - serology negative for legionella and blood cultures did not grow anything - PO Prednisoe 40mg 1xD for 5 days will be sent home with him - virtual pulmonology recommends a follow up CT in 3-4 weeks with the patient's primary, a CD of his images will be given to him to take home - Guaifenesin 200mg Q4hrs - Albuterol/ Ipratropium 3ml Q2hrs will be sent home with the patient 2) Atrial fibrillation - patient is no longer in atrial fibrillation - patient is currently on telemetry - restart home medication Eliquis 5mg BID 3) Abdominal pain - possibly from diarrhea and constipation he has been having - docusate 240mg 1xD 4) DVT prophylaxis - home medication Eliquis has been restarted Admission Status: Observation NEDRA HORAN MD 07/24/22 1441: Discharge Summary Discharge Physical Exam Allergies: Coded Allergies: No Known Drug Allergies (Unverified , 07/20/19) Supervisory-Addendum Brief Verification & Attestation Participated in pt care: history, MDM, physical Personally performed: exam, history, MDM, supervision of care Care discussed with: Medical Student Procedures: n/a Results interpretation: Verified all documentation Verification and Attestation of Medical Student E/M Service A medical student performed and documented this service in my presence. I reviewed and verified all information documented by the medical student and made modifications to such information, when appropriate. I personally performed the physical exam and medical decision making. Nedra Horan, Jul 24, 2022,14:40 BERNADETTE CUMMINGS Jul 24, 2022 12:00 NEDRA HORAN MD Jul 24, 2022 14:41
[2022-07-24 13:35] VITALS: BP 130/66
[2022-07-30] MEDS ORDERED: CEFD300C3 PO (11:56)
[2022-07-30] MEDS ORDERED: ALBU8.5H9 IH (11:56)
[2022-07-30] MEDS ORDERED: PRED10TA22 PO (11:56)
== END 2022-07-24 13:35 | disposition home or self-care (01) ==
LOC: ER 13:33 → UNDOADMOB 16:05 → EDBD 16:05 → 4TH 16:05 → MERGE 16:05 → 4TH 16:45 → UNDODISOB 07-24 13:35
PROVIDERS: ADMIT Family Medicine; ATTEND Family Medicine
DX: J44.1 Chronic obstructive pulmonary disease with (acute) exacerbation (principal); I48.91 Unspecified atrial fibrillation; J18.9 Pneumonia, unspecified organism; Z79.899 Other long term (current) drug therapy; Z79.01 Long term (current) use of anticoagulants; J90 Pleural effusion, not elsewhere classified
CPT/HCPCS: 71045; 71250; 74177; 80048; 80053; 81000; 83880; 84145; 85007; 85027 ×2; 85610; 86141; 87040; 87449; 87636; 93005; 94640 ×4; 94664; 94760 ×2; 96361 ×3; 96365; 96366; 96375 ×2; 96376 ×2; 99284; G0378; 36415

== ENCOUNTER 2022-07-26 23:31 | Inpatient (IN) | payer OTHER ==
[~2022-07-26] VITALS: Ht 165.1 cm; Wt 83.1 kg
[~2022-07-26 23:31] MED LIST changes: +APIX5TAB PO; +AZIT250T12 PO; +CEPH500T PO; +ENAL20TA16 PO; +FLUT1BLS3 IH; +IPRA3AMP31 IH; +MELA10TA2 PO; +TMSL.4C PO; +[UNRECOGNIZED DRUG - OTHER] PO; +eliquis
[2022-07-27] VITALS (17 sets, daily range): BP systolic 122–161; BP diastolic 71–96
[2022-07-27] LABS: BASOPHILS % (AUTO) 0 % (0-10); EOSINOPHILS % (AUTO) 0 % (0-10); HEMATOCRIT 53 % (40-54); HEMOGLOBIN 16.8 g/dL (13.3-17.7); LYMPHOCYTES # (AUTO) 0.3 10^3/uL (1.0-4.0); LYMPHOCYTES % (AUTO) 3 % (12-44); MEAN CORPUSCULAR HEMOGLOBIN 31 pg (25-34); MEAN CORPUSCULAR HGB CONC 32 g/dL (32-36); MEAN CORPUSCULAR VOLUME 96 fL (80-99); MEAN PLATELET VOLUME 10.8 fL (9.0-12.2); MONOCYTES # (AUTO) 0.7 10^3/uL (0.0-1.0); MONOCYTES % (AUTO) 7 % (0-12); NEUTROPHILS # (AUTO) 9.2 10^3/uL (1.8-7.8); NEUTROPHILS % (AUTO) 90 % (42-75); PLATELET COUNT 176 10^3/uL (130-400); WHITE BLOOD COUNT 10.2 10^3/uL (4.3-11.0)
[2022-07-27] MEDS ORDERED: RT-ALBUTEROL/IPRATROPIUM 3 ML (DUONEB) VIAL INH ONE
--- NOTE | 2022-07-27 00:01 | ED Dyspnea ---
General Chief Complaint: Cardiac/General Problems Stated Complaint: DIFFICULTY BREATHING,COUGH,CHEST PRESSURE Source of Information: Patient, Family Exam Limitations: Language Barrier History of Present Illness Date Seen by Provider: Jul 26, 2022 Time Seen by Provider: 23:37 Initial Comments 87-year-old male presents the emergency department today for shortness of breath. He is Arabic-speaking and his son is at the bedside to translate. His son tells me he was discharged from our hospital on after being admitted for pneumonia. He has an oxygen concentrator at home and his son was added on 3.5 L/min. He had a coughing fit prior to arrival and after the coughing fit had burning in his chest described as tearing, ripping pain. This does radiate to his right upper abdomen as well. He has never had similar pain in the past. He rates it at a 10/10. He denies any fevers or chills. He was feeling better prior to the coughing fit. Allergies and Home Medications Allergies Coded Allergies: No Known Drug Allergies (Unverified , 07/20/19) Patient Home Medication List Home Medication List Reviewed: Yes Apixaban (Eliquis) 5 Mg Tablet, 2.5 MG PO DAILY, (Reported) Entered as Reported by: AFTAB DAVIS on 07/23/22 1036 Last Action: Reviewed Cephalexin (Cephalexin) 500 Mg Capsule, 500 MG PO BID, (Reported) Entered as Reported by: AFTAB DAVIS on 07/28/22 1043 Last Action: Reviewed Fluticasone/Umeclidin/Vilanter (Trelegy Ellipta 100-62.5-25) 100-62.5 Blst.w.dev, 1 EACH IH DAILY, (Reported) Entered as Reported by: GITA MOHR on 07/22/22 1628 Last Action: Reviewed Ipratropium/Albuterol Sulfate (Iprat-Albut 0.5-3(2.5) mg/3 ml) 0.5 Mg-3 Mg (2.5 Mg Base)/3 Ml Ampul.neb, 3 ML IH Q4H PRN for SHORTNESS OF BREATH Prescribed by: NEDRA HORAN on 07/24/22 1014 Last Action: Reviewed Melatonin (Melatonin) 10 Mg Tablet, 10 MG PO HS PRN for SLEEP, (Reported) Entered as Reported by: AFTAB DAVIS on 07/23/22 1036 Last Action: Reviewed Quetiapine Fumarate (Quetiapine Fumarate) 25 Mg Tablet, 25 MG PO HS, (Reported) Entered as Reported by: AFTAB DAVIS on 07/28/22 1043 Last Action: Reviewed Tamsulosin HCl (Flomax) 0.4 Mg Cap, 0.4 MG PO DAILY, (Reported) Entered as Reported by: GTIA MOHR on 07/22/221627 Last Action: Continued [Enalapr/Lercandipine] 20-10 TAB, 1 EA PO DAILY, (Reported) Entered as Reported by: AFTAB DAVIS on 07/23/22 103 Last Action: Reviewed Discontinued Medications Amoxicillin (Amoxicillin) 500 Mg Tablet, 1,000 MG PO TID Prescribed by: CHAPARRITA HUNTER on 07/20/192231 Azithromycin (Zithromax) 250 Mg Tablet, 250 MG PO DAILY Prescribed by: CHAPARRITA HUNTER on 07/20/192231 Azithromycin (Azithromycin) 250 Mg Tablet, 250 MG PO DAILY Discontinued Reason: No Longer Taking Prescribed by: NEDRA HORAN on 07/24/22 101 Last Action: Discontinued Cephalexin (Cephalexin) 500 Mg Tablet, 500 MG PO BID Discontinued Reason: Duplicate Order Prescribed by: NEDRA HORAN on 07/24/221011 Last Action: Discontinued Enalapril Maleate (Enalapril Maleate) 20 Mg Tablet, 20 MG PO NEEDED, (Reported) Discontinued Reason: Prescription changed Entered as Reported by: GITA MOHR on 07/22/221627 Losartan Potassium (Losartan Potassium) 50 Mg Tablet, Unknown Dose PO DAILY, (Reported) Discontinued Reason: No Longer Taking Entered as Reported by: INLE GUZMAN on 07/20/192113 Last Action: Discontinued Prednisone (Prednisone) 20 Mg Tab, 40 MG PO DAILY Prescribed by: CHAPARRITA HUNTER on 07/20/192231 Prednisone (Prednisone) 20 Mg Tab, 40 MG PO DAILY Discontinued Reason: No Longer Taking Prescribed by: NEDRA HORAN on 07/24/22 1012 Last Action: Discontinued [eliquis] , BID, (Reported) Discontinued Reason: Duplicate Order Entered as Reported by: GITA MOHR on 07/22/221627 Review of Systems Review of Systems Constitutional: no symptoms reported EENTM: no symptoms reported Respiratory: cough, short of breath Cardiovascular: chest pain Gastrointestinal: no symptoms reported Genitourinary: no symptoms reported Musculoskeletal: no symptoms reported Skin: no symptoms reported Psychiatric/Neurological: No Symptoms Reported Endocrine: No Symptoms Reported Hematologic/Lymphatic: No Symptoms Reported Past Pxshpyh-Hhelov-Coeizp Hx Patient Social History Tobacco Use?: Yes Use of E-Cig and/or Vaping dev: No Substance use?: No Alcohol Use?: No Immunizations Up To Date Tetanus Booster (TDap): Unknown Seasonal Allergies Seasonal Allergies: No Past Medical History Surgeries: Yes Prostatectomy Respiratory: Yes COPD Cardiac: Yes Atrial Fibrillation, Hypertension Neurological: No Genitourinary: Yes Prostate Problems Gastrointestinal: No Musculoskeletal: No Endocrine: No HEENT: No Cancer: No Psychosocial: No Integumentary: No Blood Disorders: No Family Medical History Reviewed Nursing Family Hx No Pertinent Family Hx Physical Exam Vital Signs Vital Signs - First Documented Capillary Refill : Height, Weight, BMI Height: '" Weight: lbs. oz. kg; 30.00 BMI Method: General Appearance: WD/WN, Other (Mild respiratory distress) HEENT: Normal ENT Inspection, Pharynx Normal Neck: Normal Inspection, Non Tender, Supple Respiratory: Chest Non Tender, Other (Mild respiratory distress with use of accessory muscles. Diffuse inspiratory and expiratory wheezes bilaterally) Cardiovascular: No Murmur, Normal Peripheral Pulses, Irregularly Irregular Gastrointestinal: Normal Bowel Sounds, No Organomegaly, No Pulsatile Mass, Soft, Tenderness (Tenderness palpation right mid and upper abdomen. Voluntary guarding without rebound tenderness. No mass organomegaly. No skin changes.) Extremity: Normal Capillary Refill, Normal Inspection, Normal Range of Motion, Non Tender, No Calf Tenderness Neurologic/Psychiatric: Alert, Oriented x3, No Motor/Sensory Deficits Skin: Normal Color, Warm/Dry Lymphatic: No Adenopathy Focused Exam Lactate Level 07/27/22 00:02: Lactic Acid Level 1.95 Lactic Acid Level Laboratory Tests Test 07/27/22 00:02 Lactic Acid Level 1.95 MMOL/L (0.50-2.00) Progress/Results/Core Measures Results/Orders Lab Results Laboratory Tests Test 07/26/22 23:53 07/27/22 00:02 07/27/22 01:16 Range/Units White Blood Count 10.2 4.3-11.0 10^3/uL Red Blood Count 5.51 4.30-5.52 10^6/uL Hemoglobin 16.8 13.3-17.7 g/dL Hematocrit 53 40-54 % Mean Corpuscular Volume 96 80-99 fL Mean Corpuscular Hemoglobin 31 25-34 pg Mean Corpuscular Hemoglobin Concent 32 32-36 g/dL Red Cell Distribution Width 14.6 H 10.0-14.5 % Platelet Count 176 130-400 10^3/uL Mean Platelet Volume 10.8 9.0-12.2 fL Immature Granulocyte % (Auto) 0 % Neutrophils (%) (Auto) 90 H 42-75 % Lymphocytes (%) (Auto) 3 L 12-44 % Monocytes (%) (Auto) 7 0-12 % Eosinophils (%) (Auto) 0 0-10 % Basophils (%) (Auto) 0 0-10 % Neutrophils # (Auto) 9.2 H 1.8-7.8 10^3/uL Lymphocytes # (Auto) 0.3 L 1.0-4.0 10^3/uL Monocytes # (Auto) 0.7 0.0-1.0 10^3/uL Eosinophils # (Auto) 0.0 0.0-0.3 10^3/uL Basophils # (Auto) 0.0 0.0-0.1 10^3/uL Immature Granulocyte # (Auto) 0.0 0.0-0.1 10^3/uL Neutrophils % (Manual) 91 % Lymphocytes % (Manual) 3 % Monocytes % (Manual) 6 % Platelet Estimate NORMAL Blood Morphology Comment NORMAL Blood Gas Puncture Site RIGHT RADIAL Blood Gas Patient Temperature 98.8 Arterial Blood pH 7.36 L 7.37-7.43 Arterial Blood Partial Pressure CO2 63 H 35-45 MMHG Arterial Blood Partial Pressure O2 88 79-93 MMHG Arterial Blood HCO3 35 H 23-27 MMOL/L Arterial Blood Total CO2 36.6 H 21.0-31.0 MMOL/L Arterial Blood Oxygen Saturation 97 94-100 % Arterial Blood Base Excess 9.2 H -2.5-2.5 MMOL/L Hung Test YES-POS Blood Gas Ventilator Setting NO Blood Gas Inspired Oxygen NA Sodium Level 138 135-145 MMOL/L Potassium Level 4.1 3.6-5.0 MMOL/L Chloride Level 96 L 98-107 MMOL/L Carbon Dioxide Level 29 21-32 MMOL/L Anion Gap 13 5-14 MMOL/L Blood Urea Nitrogen 14 7-18 MG/DL Creatinine 0.74 0.60-1.30 MG/DL Estimat Glomerular Filtration Rate 87 BUN/Creatinine Ratio 19 Glucose Level 134 H 70-105 MG/DL Calcium Level 8.9 8.5-10.1 MG/DL Corrected Calcium 8.8 8.5-10.1 MG/DL Total Bilirubin 0.9 0.1-1.0 MG/DL Aspartate Amino Transf (AST/SGOT) 39 H 5-34 U/L Alanine Aminotransferase (ALT/SGPT) 41 0-55 U/L Alkaline Phosphatase 51 40-136 U/L Troponin I 0.036 H <0.028 NG/ML Total Protein 7.8 6.4-8.2 GM/DL Albumin 4.1 3.2-4.5 GM/DL Lactic Acid Level 1.95 0.50-2.00 MMOL/L Influenza Type A (RT-PCR) Not Detected Not Detecte Influenza Type B (RT-PCR) Not Detected Not Detecte SARS-CoV-2 RNA (RT-PCR) Not Detected Not Detecte Urine Color YELLOW Urine Clarity CLEAR Urine pH 6.0 5-9 Urine Specific [place] 1.025 H 1.016-1.022 Urine Protein 1+ H NEGATIVE Urine Glucose (UA) NEGATIVE NEGATIVE Urine Ketones TRACE H NEGATIVE Urine Nitrite NEGATIVE NEGATIVE Urine Bilirubin NEGATIVE NEGATIVE Urine Urobilinogen 1.0 < = 1.0 MG/DL Urine Leukocyte Esterase NEGATIVE NEGATIVE Urine RBC (Auto) TRACE-I H NEGATIVE Urine RBC 2-5 H /HPF Urine WBC RARE /HPF Urine Squamous Epithelial Cells 10-25 H /HPF Urine Crystals NONE /LPF Urine Bacteria FEW H /HPF Urine Casts PRESENT /LPF Urine Hyaline Casts 10-25 H /LPF Urine Mucus LARGE H /LPF Urine Culture Indicated NO Micro Results Microbiology 07/27/22 Urine Culture - Final, Complete NO GROWTH 07/27/22 Blood Culture - Preliminary, Resulted No growth 07/27/22 Blood Culture - Preliminary, Resulted No growth My Orders Orders - YSABEL BOLDEN DO Ekg Tracing (07/26/22 23:39) Cbc With Automated Diff (07/26/22 23:52) Comprehensive Metabolic Panel (07/26/22 23:52) Blood Culture (07/26/22 23:52) Urinalysis (07/26/22 23:52) Urine Culture (07/26/22 23:52) Ed Iv/Invasive Line Start (07/26/22 23:52) Ed Iv/Invasive Line Start (07/26/22 23:52) Troponin I Lisandro (07/26/22 23:52) Vital Signs Adult Sepsis Patie Q15M (07/26/22 23:52) O2 (07/26/22 23:52) Lactic Acid Analyzer (07/26/22:52) Influenza A And B By Pcr (07/26/22 23:52) Covid 19 Inhouse Test (07/26/22 23:52) Albuterol/Ipra Inhalation Soln (Duoneb I (07/27/22 00:00) Svn Small Volume Nebulizer (07/26/22 23:52) Arterial Blood Gas (07/26/22:52) Chest 1 View, Ap/Pa Only (07/27/22 00:01) Ct Jaqui Chest/Noang Abd-Pelv W (07/27/22 00:01) Manual Differential (07/26/22 23:53) Fentanyl Inj (Sublimaze Injection) (07/27/22 00:15) Albuterol Pre-Mix Nebs (Rt) (Proventil (07/27/22 00:37) Albuterol Pre-Mix Nebs (Rt) (Proventil (07/27/22 00:45) Ondansetron Injection (Zofran Injectio (07/27/22 00:52) Iohexol Injection (Omnipaque 350 Mg/Ml 1 (07/27/22 01:30) Sodium Chloride Flush (Catheter Flush Sy (07/27/22 01:30) Ns (Ivpb) (Sodium Chloride 0.9% Ivpb Bag (07/27/22 01:30) Ed Admission (Communication) (07/27/22 01:44) Vital Signs/I&O 07/26/22 07/26/22 07/26/22 07/27/22 23:38 23:38 23:38 00:18 Temp 37.1 Pulse 87 Resp 24 B/P (MAP) 152/89 (110) Pulse Ox 97 96 94 O2 Delivery OxyMask Nasal Cannula OxyMask OxyMask O2 Flow Rate 15.00 3.00 15.00 15.00 07/27/22 00:42 Pulse Ox 96 O2 Delivery OxyMask O2 Flow Rate 10.00 Comment Atrial fibrillation with a rate of 96 bpm. Normal intervals outside of HI interval. Normal axis. No ST or T wave abnormalities. No ectopy. Departure Communication (Admissions) Patient has increasing oxygen demand, worsening wheezing and overall appears ill. He has moderate respiratory distress that does improve somewhat with oxygen therapy however he is still significantly wheezy even after multiple breathing treatments. Troponin is very mildly elevated. I think this is likely from demand ischemia and not true ME. EKG is nonischemic. With that he will be admitted to the hospital for continued pneumonia. I spoke with the hospitalist on-call who accepts the patient admission Impression Primary Impression: Healthcare-associated pneumonia Additional Impressions: Elevated troponin Hypoxia Disposition: ADMITTED INPATIENT Condition: Stable Admissions Decision to Admit Reason: Admit from ER (General) Departure-Patient Inst. Referrals: NO,LOCAL PHYSICIAN (PCP/Family) Primary Care Physician YSABEL BOLDEN DO Jul 27, 2022 00:00
[2022-07-27 00:02] LABS: ABG BASE EXCESS 9.2 MMOL/L (-2.5-2.5); ABG OXYGEN SATURATION 97 % (94-100); ABG PCO2 63 MMHG (35-45); ABG PH 7.36 (7.37-7.43); ABG PO2 88 MMHG (79-93); ABG TCO2 36.6 MMOL/L (21.0-31.0)
[2022-07-27 00:03] LABS: ALLENS TEST YES-POS; VENTILATOR NO
[2022-07-27 00:04] LABS: PATIENT TEMP 98.8
[2022-07-27 00:15] LABS: ALBUMIN 4.1 GM/DL (3.2-4.5); POTASSIUM 4.1 MMOL/L (3.6-5.0)
[2022-07-27] MEDS ORDERED: fentaNYL INJ 100 MCG/2 ML AMP IVP ONE (00:15)
[2022-07-27 00:16] LABS: CALCIUM 8.9 MG/DL (8.5-10.1)
[2022-07-27 00:17] LABS: TOTAL PROTEIN 7.8 GM/DL (6.4-8.2)
[2022-07-27 00:19] LABS: BILIRUBIN,TOTAL 0.9 MG/DL (0.1-1.0)
[2022-07-27 00:21] LABS: CREATININE SERUM 0.74 MG/DL (0.60-1.30)
[2022-07-27 00:29] LABS: LYMPHOCYTES % (MANUAL) 3 %; MONOCYTES % (MANUAL) 6 %; NEUTROPHILS % (MANUAL) 91 %; PLATELET ESTIMATE NORMAL
[2022-07-27 00:30] LABS: RBC MORPH NORMAL
[2022-07-27] MEDS ORDERED: RT-ALBUTEROL SULF 2.5 MG/3 ML PRE-MIX VIAL ONE (00:37)
[2022-07-27] MEDS ORDERED: RT-ALBUTEROL SULF 2.5 MG/3 ML PRE-MIX VIAL INH ONE (00:45)
[2022-07-27] MEDS ORDERED: ONDANSETRON 4 MG/2 ML (SDV) Z0FRAN ONE (00:52)
[2022-07-27 01:23] LABS: BILIRUBIN,URINE NEGATIVE (NEGATIVE); CLARITY,URINE CLEAR; COLOR,URINE YELLOW; GLUCOSE, URINE (UA) NEGATIVE (NEGATIVE); KETONES,URINE TRACE (NEGATIVE); LEUKOCYTE ESTERASE ,URINE NEGATIVE (NEGATIVE); NITRITE,URINE NEGATIVE (NEGATIVE); PROTEIN,URINE 1+ (NEGATIVE)
[2022-07-27] MEDS ORDERED: NS 100 ML (IVPB) BAG IV ONE (01:30)
[2022-07-27] MEDS ORDERED: CATHETER FLUSH 10 ML SYR IV PRN (01:30)
[2022-07-27] MEDS ORDERED: IOHEXOL 350 MG/ML 100 ML (OMNIPAQUE 350) VIAL IV ONE (01:30)
[2022-07-27 01:34] LABS: BACTERIA,URINE FEW /HPF; WBC,URINE RARE /HPF
[2022-07-27] MEDS ORDERED: methylPREDNISolone 125 MG (Solu-MEDROL) VIAL IVP ONE (03:00)
[2022-07-27] MEDS: CEFEPIME INJECTION 1,000 MG in NS (IVPB) 50 ML IV SCH ×4 (03:36→20:46)
[2022-07-27] MEDS: fentaNYL INJ 100 MCG/2 ML AMP IVP PRN ×6 (03:37→18:50)
[2022-07-27] MEDS: ONDANSETRON 4 MG/2 ML (SDV) Z0FRAN IVP PRN ×4 (03:37→18:50)
[2022-07-27] MEDS ORDERED: RT-ALBUTEROL/IPRATROPIUM 3 ML (DUONEB) VIAL INH PRN (03:45)
[2022-07-27 04:49] LABS: BASOPHILS % (AUTO) 0 % (0-10); EOSINOPHILS % (AUTO) 0 % (0-10); HEMATOCRIT 51 % (40-54); HEMOGLOBIN 16.1 g/dL (13.3-17.7); LYMPHOCYTES # (AUTO) 0.4 10^3/uL (1.0-4.0); LYMPHOCYTES % (AUTO) 4 % (12-44); MEAN CORPUSCULAR HEMOGLOBIN 31 pg (25-34); MEAN CORPUSCULAR HGB CONC 32 g/dL (32-36); MEAN CORPUSCULAR VOLUME 96 fL (80-99); MEAN PLATELET VOLUME 10.9 fL (9.0-12.2); MONOCYTES # (AUTO) 0.5 10^3/uL (0.0-1.0); MONOCYTES % (AUTO) 5 % (0-12); NEUTROPHILS # (AUTO) 9.1 10^3/uL (1.8-7.8); NEUTROPHILS % (AUTO) 90 % (42-75); PLATELET COUNT 173 10^3/uL (130-400); WHITE BLOOD COUNT 10.1 10^3/uL (4.3-11.0)
[2022-07-27 05:05] LABS: CHLORIDE 97 MMOL/L (98-107); POTASSIUM 4.5 MMOL/L (3.6-5.0); SODIUM 138 MMOL/L (135-145)
[2022-07-27 05:06] LABS: CALCIUM 8.6 MG/DL (8.5-10.1); GLUCOSE 155 MG/DL (70-105)
[2022-07-27 05:08] LABS: CARBON DIOXIDE 30 MMOL/L (21-32)
[2022-07-27 05:10] LABS: CREATININE SERUM 0.72 MG/DL (0.60-1.30); GFR ESTIMATED 87; PHOSPHORUS 3.4 MG/DL (2.3-4.7)
[2022-07-27 05:11] LABS: BUN/CREATININE RATIO 19
[2022-07-27 05:13] LABS: MAGNESIUM 2.6 MG/DL (1.6-2.4)
[2022-07-27] MEDS: CATHETER FLUSH 10 ML SYR IVP SCH ×3 (05:22→23:45)
[2022-07-27] MEDS: RT-ALBUTEROL/IPRATROPIUM 3 ML (DUONEB) VIAL INH SCH ×5 (07:11→22:39)
--- NOTE | 2022-07-27 07:39 | Diagnostic Imaging Report ---
EXAM: CT AISHA CHEST/NOANG ABD-PELV W TECHNIQUE: 3-D reconstructions, including MIPS, the angiographic images are created and reviewed by the radiologist. INDICATION: Chest pain. Cough. Hypoxia. COMPARISON: CT chest without contrast and CT abdomen and pelvis with IV contrast 07/22/2022. CTA chest 07/20/2019. FINDINGS: CTA CHEST: No pulmonary artery filling defects. Again seen is prominent caliber of the central pulmonary arteries with some narrowing of the lobar branches bilaterally. Stable soft tissue density with calcifications in the shlmoo bilaterally. Cardiomegaly. Normal caliber thoracic aorta. Moderate atherosclerotic calcifications including coronary. Stable bilateral pleural effusions, greater on the right. Patchy airspace opacities in both lungs have mildly improved. No pneumothorax. No acute osseous findings. CT ABDOMEN AND PELVIS: The liver, gallbladder, pancreas, spleen, adrenals, kidneys, collecting systems and bladder negative. Normal appendix. No free intraperitoneal air or fluid. No lymphadenopathy. No evidence of bowel obstruction. Moderate atherosclerotic calcifications. Moderate spondylotic changes in the lumbar spine. No acute osseous findings. IMPRESSION: 1. No pulmonary emboli. 2. Prominent caliber central pulmonary arteries with stable narrowing of the lobar branches bilaterally. Soft tissue density with calcifications in the shlomo bilaterally is similar to prior exams and compatible with a granulomatous process. 3. Stable cardiomegaly. 4. Stable bilateral pleural effusions, greater on the right. 5. Patchy airspace opacities in both lungs have mildly improved. 6. No acute CT findings in the abdomen or pelvis. No significant change from preliminary interpretation. Dictated by: Dictated on workstation # [id number]
--- NOTE | 2022-07-27 08:08 | Diagnostic Imaging Report ---
INDICATION: Dyspnea and hypoxia. Comparison is made with prior exam of 07/22/2022. FINDINGS: There is cardiomegaly. There is bilateral perihilar atelectasis and/or pneumonitis. No pleural effusion. No pneumothorax. Mediastinum unremarkable. IMPRESSION: Cardiomegaly and bilateral perihilar atelectasis and/or pneumonitis with some venous congestion. Dictated by: Dictated on workstation # [id number]
[2022-07-27] MEDS ORDERED: DOCUSATE SODIUM 100 MG (COLACE) CAP PO PRN (11:15)
[2022-07-27] MEDS: methylPREDNISolone 125 MG (Solu-MEDROL) VIAL IVP SCH ×3 (12:17→23:45)
--- NOTE | 2022-07-27 12:59 | History & Physical ---
BERNADETTE CUMMINGS 07/27/22 1259: History of Present Illness History of Present Illness Reason for visit/HPI Reason for visit: Chest pain HPI: This patient is a 87yo M with a past medical history of COPD, atrial fibrillation, htn, and wears oxygen 3L/min at night and while at home. He presented to the ER with chest pain yesterday evening. He was recently discharged from the hospital on 07/24/22 after being treated for pneumonia. The patient reports he has been taking the Abx he was sent home with. On Thursday he was feeling better. On Thursday he had increased SOB with exertion and was coughing up green mucus. That evening he had a coughing fit and during it he felt a burning and ripping sensation in his chest. The pain was constant and a 10/10 that was worse with coughing and moving. He came to the ER because the pain was so intense. In the ER the patient had oxygen saturation of 80% and was put on 15L of oxygen. He was given fentanyl and albuterol which reduced his pain and improved his SOB. The patient was in atrial fibrillation with a rate of 96. A chest X-ray showed cardiomegaly and bilateral pneumonitis. Chest CT showed that the patchy infiltrates seen on previous CT had improved. ABG showed CO2 of 63. Patient was admitted for chest pain and acute on chronic respiratory failure. This morning the patient was awake laying in bed. He had just received a dose of fentanyl and was not having chest pain at that time. Says the chest pain is worse when he tries to cough or move around. Describes the chest pain as sharp and intermittent. He is also feeling constipated and bloated. He has some abdominal discomfort in his RLQ. His last bowel movement was yesterday. He believes that his wheezing and SOB are worse today than when he was previously in the hospital. Patient is currently at his baseline of oxygen 3L/min nasal cannula. Patient denies palpitations and edema. Date of Admission Jul 27, 2022 at 01:45 Date Seen by a Provider: Jul 27, 2022 Time Seen by a Provider: 09:30 I consulted on this patient on 07/27/22 12:55 Attending Physician No,Local Physician Admitting Physician Admitting Physician: Nedra Horan MD Attending Physician: Nedra Horan MD Consult Allergies and Home Medications Allergies Coded Allergies: No Known Drug Allergies (Unverified , 07/20/19) Patient Home Medication List Albuterol Sulfate (Proair Hfa) 90 Mcg Hfa.aer.ad, 8.5 GM IH Q4H PRN for SHORTNESS OF BREATH Prescribed by: ANA LILIA TRUJILLO on 07/30/22 1156 Apixaban (Eliquis) 5 Mg Tablet, 2.5 MG PO DAILY, (Reported) Entered as Reported by: AFTAB DAVIS on 07/23/22 1036 Last Action: Reviewed Cefdinir (Cefdinir) 300 Mg Capsule, 300 MG PO BID Prescribed by: ANA LILIA TRUJILLO on 07/30/22 1156 Fluticasone/Umeclidin/Vilanter (Trelegy Ellipta 100-62.5-25) 100-62.5 B lst.w.dev, 1 EACH IH DAILY, (Reported) Entered as Reported by: GITA MOHR on 07/22/221627 Last Action: Reviewed Ipratropium/Albuterol Sulfate (Iprat-Albut 0.5-3(2.5) mg/3 ml) 0.5 Mg-3 Mg (2.5 Mg Base)/3 Ml Ampul.neb, 3 ML IH Q4H PRN for SHORTNESS OF BREATH Prescribed by: NEDRA HORAN on 07/24/22 1014 Last Action: Reviewed Melatonin (Melatonin) 10 Mg Tablet, 10 MG PO HS PRN for SLEEP, (Reported) Entered as Reported by: AFTAB DAVIS on 07/23/22 103 Last Action: Reviewed Prednisone (Prednisone) 10 Mg Tab.ds.pk, 10 MG PO DAILY Prescribed by: ANA LILIA TRUJILLO on 07/30/22 1156 Quetiapine Fumarate (Quetiapine Fumarate) 25 Mg Tablet, 25 MG PO HS, (Reported) Entered as Reported by: AFTAB DAVIS on 07/28/22 1043 Last Action: Reviewed Tamsulosin HCl (Flomax) 0.4 Mg Cap, 0.4 MG PO DAILY, (Reported) Entered as Reported by: GITA MOHR on 07/22/228 Last Action: Continued [Enalapr/Lercandipine] 20-10 TAB, 1 EA PO DAILY, (Reported) Entered as Reported by: AFTAB DAVIS on 07/23/22 1036 Last Action: Reviewed Discontinued Medications Azithromycin (Azithromycin) 250 Mg Tablet, 250 MG PO DAILY Discontinued Reason: No Longer Taking Prescribed by: NEDRA HORAN on 07/24/22 1012 Last Action: Discontinued Cephalexin (Cephalexin) 500 Mg Tablet, 500 MG PO BID Discontinued Reason: Duplicate Order Prescribed by: NEDRA HORAN on 07/24/22 1012 Last Action: Discontinued Cephalexin (Cephalexin) 500 Mg Capsule, 500 MG PO BID, (Reported) Entered as Reported by: AFTAB DAVIS on 07/28/22 1043 Last Action: Reviewed Losartan Potassium (Losartan Potassium) 50 Mg Tablet, Unknown Dose PO DAILY, (Reported) Discontinued Reason: No Longer Taking Entered as Reported by: NILE GUZMAN on 07/20/192113 Last Action: Discontinued Prednisone (Prednisone) 20 Mg Tab, 40 MG PO DAILY Discontinued Reason: No Longer Taking Prescribed by: NEDRA HORAN on 07/24/22 1012 Last Action: Discontinued Past Dmlubbr-Lqzktc-Zwlmfp Hx Patient Social History Living Status: Lives in [place], is currently visiting his son Tobacco Use?: No Use of E-Cig and/or Vaping dev: No Substance use?: No Alcohol Use?: Yes Alcohol type: Beer Alcohol Frequency: Once in a while Pt feels they are or have been: No Immunizations Up To Date Tetanus Booster (TDap): Unknown Seasonal Allergies Seasonal Allergies: No Current Status Communicates: Verbally Primary Language: Fijian Preferred Spoken Language: Fijian Is interpretation needed?: Yes Past Medical History Surgeries: Prostatectomy COPD Atrial Fibrillation, Hypertension Prostate Problems Blood Disorders: No Family Medical History Reviewed Nursing Family Hx No Pertinent Family Hx Review of Systems Constitutional: No chills, No dizziness, No fever; weakness EENTM: No hearing loss, No vision loss, No nose congestion, No throat pain Respiratory: cough, phlegm (green), short of breath (at rest and with exertion), wheezing Cardiovascular: chest pain; No edema, No palpitations, No syncope Gastrointestinal: abdominal pain (diffuse), constipation; No diarrhea, No loss of appetite, No nausea, No vomiting Genitourinary: No decreased output, No dysuria, No frequency Musculoskeletal: No joint pain, No joint swelling Skin: No change in color, No rash Psychiatric/Neurological: Denies Headache, Denies Numbness, Denies Tingling, Denies Tremors; Weakness Physical Exam Vital Signs Vital Signs - First Documented Capillary Refill : Height, Weight, BMI Height: '" Weight: lbs. oz. kg; 32.46 BMI Method: General Appearance: WD/WN, Mild Distress (Audibly wheezing) HEENT: Pharynx Normal, Moist Mucous Membranes Neck: Full Range of Motion, Normal Inspection, Non Tender, Supple Respiratory: Decreased Breath Sounds (throughout right lung), Wheezing (throughout bilateral lungs) Cardiovascular: Regular Rate, Rhythm, No Edema, No Murmur, Normal Peripheral Pulses (3+ bilateral radial pulse) Gastrointestinal: No Organomegaly, No Pulsatile Mass, Distended, Tenderness (RLQ) Extremity: Normal Capillary Refill, Normal Inspection, Normal Range of Motion, Non Tender, No Calf Tenderness, No Pedal Edema Neurologic/Psychiatric: Alert, Oriented x3, Normal Mood/Affect Skin: Normal Color, Warm/Dry Assessment/Plan Assessment and Plan 1) Acute on chronic respiratory failure due to COPD exacerbation from multifocal pneumonia - patient is back to baseline oxygen use - Cefepime 50ml@100mls/hr - Alubterol/ipratropium [id number] - 40mg prednisone 1xD for 5 days with a taper - Guaifenesin 200mg Q4hrs 2) Chest pain - most likely pleuritic chest pain due to coughing - fentanyl 75mcg Q2hrs - patient having nausea with pain medication so ondansetron 4mg Q4hrs - patient will be moved to cardiac stepdown 3) Elevated troponin - trended down today and therefore unlikely a NSTEMI - cardiology has been consulted 4) Constipation - Miralax 17g dissolved in 120mL PRN - docusate calcium 240mg 1xD 5) Atrial fibrillation - patient is not currently in atrial fibrillation - restart home medication Eliquis 5mg BID Admission Diagnosis Admission Status: Inpatient Order (span 2 midnights) Reason for Inpatient Admission: Chest pain and respiratory failure NEDRA HORAN MD 08/04/22 7157: Allergies and Home Medications Allergies Coded Allergies: No Known Drug Allergies (Unverified , 07/20/19) Patient Home Medication List Home Medication List Reviewed: Yes Albuterol Sulfate (Proair Hfa) 90 Mcg Hfa.aer.ad, 8.5 GM IH Q4H PRN for SHORTNESS OF BREATH Prescribed by: ANA LILIA TRUJILLO on 07/30/22 1156 Apixaban (Eliquis) 5 Mg Tablet, 2.5 MG PO DAILY, (Reported) Entered as Reported by: AFTAB DAVIS on 07/23/22 103 Last Action: Reviewed Cefdinir (Cefdinir) 300 Mg Capsule, 300 MG PO BID Prescribed by: ANA LILIA TRUJILLO on 07/30/22 1156 Fluticasone/Umeclidin/Vilanter (Trelegy Ellipta 100-62.5-25) 100-62.5 Blst.w. dev, 1 EACH IH DAILY, (Reported) Entered as Reported by: GITA MOHR on 07/22/22 1628 Last Action: Reviewed Ipratropium/Albuterol Sulfate (Iprat-Albut 0.5-3(2.5) mg/3 ml) 0.5 Mg-3 Mg (2.5 Mg Base)/3 Ml Ampul.neb, 3 ML IH Q4H PRN for SHORTNESS OF BREATH Prescribed by: NEDRA HORAN on 07/24/22 1014 Last Action: Reviewed Melatonin (Melatonin) 10 Mg Tablet, 10 MG PO HS PRN for SLEEP, (Reported) Entered as Reported by: AFTAB DAVIS on 07/23/22 103 Last Action: Reviewed Prednisone (Prednisone) 10 Mg Tab.ds.pk, 10 MG PO DAILY Prescribed by: ANA LILIA TRUJILLO on 07/30/22 1156 Quetiapine Fumarate (Quetiapine Fumarate) 25 Mg Tablet, 25 MG PO HS, (Reported) Entered as Reported by: AFTAB DAVIS on 07/28/22 1043 Last Action: Reviewed Tamsulosin HCl (Flomax) 0.4 Mg Cap, 0.4 MG PO DAILY, (Reported) Entered as Reported by: GITA MOHR on 07/22/22 1628 Last Action: Continued [Enalapr/Lercandipine] 20-10 TAB, 1 EA PO DAILY, (Reported) Entered as Reported by: AFTAB DAVIS on 07/23/22 103 Last Action: Reviewed Discontinued Medications Azithromycin (Azithromycin) 250 Mg Tablet, 250 MG PO DAILY Discontinued Reason: No Longer Taking Prescribed by: NEDRA HORAN on 07/24/22 1012 Last Action: Discontinued Cephalexin (Cephalexin) 500 Mg Tablet, 500 MG PO BID Discontinued Reason: Duplicate Order Prescribed by: NEDRA HORAN on 07/24/22 1012 Last Action: Discontinued Cephalexin (Cephalexin) 500 Mg Capsule, 500 MG PO BID, (Reported) Entered as Reported by: AFTAB DAVIS on 07/28/22 1043 Last Action: Reviewed Losartan Potassium (Losartan Potassium) 50 Mg Tablet, Unknown Dose PO DAILY, (Reported) Discontinued Reason: No Longer Taking Entered as Reported by: NILE GUZMAN on 07/20/194 Last Action: Discontinued Prednisone (Prednisone) 20 Mg Tab, 40 MG PO DAILY Discontinued Reason: No Longer Taking Prescribed by: NEDRA HORAN on 07/24/22 1012 Last Action: Discontinued Supervisory-Addendum Brief Verification & Attestation Participated in pt care: history, MDM, physical Personally performed: exam, history, MDM, supervision of care Care discussed with: Medical Student Procedures: n/a Results interpretation: Verified all documentation Verification and Attestation of Medical Student E/M Service A medical student performed and documented this service in my presence. I reviewed and verified all information documented by the medical student and made modifications to such information, when appropriate. I personally performed the physical exam and medical decision making. Nedra Horan, Aug 04, 2022,13:54 BERNADETTE CUMMINGS Jul 27, 2022 12:59 NEDRA HORAN MD Aug 04, 2022 13:55
--- NOTE | 2022-07-27 14:56 | Consultation-Cardiology ---
HPI-Cardiology Cardiology Consultation: Date of Consultation 07/27/22 Time Seen by a Provider: 11:50 Date of Admission 07-26-22 Attending Physician No,Local Physician Admitting Physician Admitting Physician: Nedra Horan MD Attending Physician: Nedra Horan MD Consulting Physician CORAZON RIVERA MD, MA, FACP, FACC, FSCAI, CCDS Physician requesting consult: Dr Horan HPI: Chief Complaint: Reason for Card consult: Chest pain 87 yo man recently discharged from a hospitalization for pneumonia returns to the hosp for increasing shortness of breath, increasing cough productive of small quantities of yellowish sputum, and R-sided chest pain. Chest pain moderate to severe in intensity, worse with coughing or deep inspiration, present continuously for several day, nonradiating, not experienced before. He denies palp or syncope or swelling. Notes gen malaise and weakness. Interpretation was provided by his son who was at the bedside. Review of Systems-Cardiology Review of Systems Constitutional: As described under HPI Eyes: No vision change Ears/Nose/Throat: No ear discharge, No nasal drainage, No recent hearing loss Respiratory: As described under HPI Cardiovascular: As described under HPI Gastrointestinal: No diarrhea, No nausea, No vomiting Genitourinary: No dysuria, No hematuria Musculoskeletal: As describe under HPI Skin: No rash, No ulcerations Psychiatric/Neurological: No seizure, No focal weakness, No syncope Hematologic: No bleeding abnormalities QDA-Axbvvr-Iyauou Hx Patient Social History Living Status: Lives in [place], is currently visiting his son 2nd Hand Smoke Exposure: No Have you traveled recently?: No Alcohol Use?: Yes Pt feels they are or have been: No Immunizations Up To Date Tetanus Booster (TDap): Unknown Past Medical History PMH As described under Assessment. Family Medical History Family Medical History: He does not report fam h/o early CAD Allergies and Home Medications Allergies Coded Allergies: No Known Drug Allergies (Unverified , 07/20/19) Patient Home Medication List Home Medication List Reviewed: Yes Apixaban (Eliquis) 5 Mg Tablet, 2.5 MG PO DAILY, (Reported) Entered as Reported by: AFTAB DAVIS on 07/23/22 1036 Azithromycin (Azithromycin) 250 Mg Tablet, 250 MG PO DAILY Prescribed by: NEDRA HORAN on 07/24/22 1012 Cephalexin (Cephalexin) 500 Mg Tablet, 500 MG PO BID Prescribed by: NEDRA HORAN on 07/24/22 1012 Fluticasone/Umeclidin/Vilanter (Trelegy Ellipta 100-62.5-25) 100-62.5 Blst.w.dev, 1 EACH IH DAILY, (Reported) Entered as Reported by: GITA MOHR on 07/22/22 162 Ipratropium/Albuterol Sulfate (Iprat-Albut 0.5-3(2.5) mg/3 ml) 0.5 Mg-3 Mg (2.5 Mg Base)/3 Ml Ampul.neb, 3 ML IH Q4H PRN for SHORTNESS OF BREATH Prescribed by: NEDRA HORAN on 07/24/22 1014 Losartan Potassium (Losartan Potassium) 50 Mg Tablet, Unknown Dose PO DAILY, (Reported) Entered as Reported by: NILE GUZMAN on 07/20/192113 Melatonin (Melatonin) 10 Mg Tablet, 10 MG PO HS, (Reported) Entered as Reported by: AFTAB DAVIS on 07/23/22 103 Prednisone (Prednisone) 20 Mg Tab, 40 MG PO DAILY Prescribed by: NEDRA HORAN on 07/24/22 101 Tamsulosin HCl (Flomax) 0.4 Mg Cap, 0.4 MG PO DAILY, (Reported) Entered as Reported by: GITA MOHR on 07/22/221627 [Enalapr/Lercandipine] 20-10 TAB, 1 EA PO DAILY, (Reported) Entered as Reported by: AFTAB DAVIS on 07/23/22 1036 Discontinued Medications Amoxicillin (Amoxicillin) 500 Mg Tablet, 1,000 MG PO TID Prescribed by: CHAPARRITA HUNTER on 07/20/192231 Azithromycin (Zithromax) 250 Mg Tablet, 250 MG PO DAILY Prescribed by: CHAPARRITA HUNTER on 07/20/192231 Enalapril Maleate (Enalapril Maleate) 20 Mg Tablet, 20 MG PO NEEDED, (Reported) Discontinued Reason: Prescription changed Entered as Reported by: GITA MOHR on 07/22/221627 Prednisone (Prednisone) 20 Mg Tab, 40 MG PO DAILY Prescribed by: CHAPARRITA HUNTER on 07/20/192231 [eliquis] , BID, (Reported) Discontinued Reason: Duplicate Order Entered as Reported by: GITA MOHR on 07/22/22 9436 Physical Exam-Cardiology Physical Exam Vital Signs/I&O 07/27/22 07/27/22 07/27/22 07/27/22 03:00 03:15 03:25 03:45 Temp 38.8 Pulse 67 63 68 73 Resp 32 33 18 B/P (MAP) 133/82 (99) 130/82 (98) 129/81 (97) Pulse Ox 96 96 96 97 O2 Delivery OxyMask OxyMask OxyMask O2 Flow Rate 6.00 6.00 6.00 07/27/22 07/27/22 07/27/22 07/27/22 04:15 04:45 06:00 07:00 Pulse 62 64 85 66 Resp 17 23 20 B/P (MAP) 133/90 (104) 122/71 (88) 125/80 (95) 130/78 (95) Pulse Ox 97 97 97 98 O2 Delivery OxyMask OxyMask OxyMask OxyMask O2 Flow Rate 6.00 6.00 6.00 6.00 07/27/22 07/27/22 07/27/22 07/27/22 07:00 07:11 07:17 07:27 Temp 36.0 Pulse 78 Pulse Ox 98 O2 Delivery OxyMask OxyMask O2 Flow Rate 6.00 4.00 07/27/22 07/27/22 07/27/22 07/27/22 08:00 08:00 09:00 10:00 Pulse 58 69 72 Resp 19 B/P (MAP) 133/96 (108) 122/80 (94) 132/83 (99) Pulse Ox 97 96 98 97 O2 Delivery OxyMask OxyMask OxyMask OxyMask O2 Flow Rate 6.00 4.00 6.00 6.00 07/27/22 07/27/22 07/27/22 07/27/22 10:50 10:54 11:04 11:09 Pulse Ox 64 O2 Delivery OxyMask Nasal Cannula Nasal Cannula Nasal Cannula O2 Flow Rate 4.00 3.00 3.00 3.00 07/27/22 07/27/22 11:22 13:00 Temp 36.6 Pulse 61 Capillary Refill : Constitutional: AAO x 3, well-developed, well-nourished, other (sitting up in bed, coughing, appears uncomfortable, as oxygen mask on ) HEENT: PERRL, EOMI; No xanthelasmas are seen Neck: No non-tender; carotid pulses are 2 + bilaterally Respiratory: No accessory muscle use; other (Fair air entry, scattered rhonchi and coarse crackles over large airways) Cardiovascular: irregularly irregular, S1 and S2, systolic murmur (soft SYDNI at card base) Gastrointestinal: No tender; soft; No guarding, No rebound; audible bowel sounds Extremities: No clubbing, No cyanosis, No significant edema Neurologic/Psychiatric: oriented x 3, other (moves all limbs equally) Skin: No rash on exposed areas, No ulcerations on exposed areas Data Review Labs Laboratory Tests 07/26/22 23:53: White Blood Count 10.2, Red Blood Count 5.51, Hemoglobin 16.8, Hematocrit 53, Mean Corpuscular Volume 96, Mean Corpuscular Hemoglobin 31, Mean Corpuscular Hemoglobin Concent 32, Red Cell Distribution Width 14.6H, Platelet Count 176, Mean Platelet Volume 10.8, Immature Granulocyte % (Auto) 0, Neutrophils (%) (Auto) 90H, Lymphocytes (%) (Auto) 3L, Monocytes (%) (Auto) 7, Eosinophils (%) (Auto) 0, Basophils (%) (Auto) 0, Neutrophils # (Auto) 9.2H, Lymphocytes # (Auto) 0.3L, Monocytes # (Auto) 0.7, Eosinophils # (Auto) 0.0, Basophils # (Auto) 0.0, Immature Granulocyte # (Auto) 0.0, Neutrophils % (Manual) 91, Lymphocytes % (Manual) 3, Monocytes % (Manual) 6, Platelet Estimate NORMAL, Blood Morphology Comment NORMAL, Blood Gas Puncture Site RIGHT RADIAL, Blood Gas Patient Temperature 98.8, Arterial Blood pH 7.36L, Arterial Blood Partial Press ure CO2 63H, Arterial Blood Partial Pressure O2 88, Arterial Blood HCO3 35H, Arterial Blood Total CO2 36.6H, Arterial Blood Oxygen Saturation 97, Arterial Blood Base Excess 9.2H, Hung Test YES-POS, Blood Gas Ventilator Setting NO, Blood Gas Inspired Oxygen NA, Sodium Level 138, Potassium Level 4.1, Chloride Level 96L, Carbon Dioxide Level 29, Anion Gap 13, Blood Urea Nitrogen 14, Creatinine 0.74, Estimat Glomerular Filtration Rate 87, BUN/Creatinine Ratio 19, Glucose Level 134H, Calcium Level 8.9, Corrected Calcium 8.8, Total Bilirubin 0.9, Aspartate Amino Transf (AST/SGOT) 39H, Alanine Aminotransferase (ALT/SGPT) 41, Alkaline Phosphatase 51, Troponin I 0.036H, Total Protein 7.8, Albumin 4.1 07/27/22 00:02: Lactic Acid Level 1.95, Influenza Type A (RT-PCR) Not Detected, Influenza Type B (RT-PCR) Not Detected, SARS-CoV-2 RNA (RT-PCR) Not Detected 07/27/22 01:16: Urine Color YELLOW, Urine Clarity CLEAR, Urine pH 6.0, Urine Specific [place] 1.025H, Urine Protein 1+H, Urine Glucose (UA) NEGATIVE, Urine Ketones TRACEH, Urine Nitrite NEGATIVE, Urine Bilirubin NEGATIVE, Urine Urobilinogen 1.0, Urine Leukocyte Esterase NEGATIVE, Urine RBC (Auto) TRACE-IH, Urine RBC 2-5H, Urine WBC RARE, Urine Squamous Epithelial Cells 10-25H, Urine Crystals NONE, Urine Bacteria FEWH, Urine Casts PRESENT, Urine Hyaline Casts 10-25H, Urine Mucus LARGEH, Urine Culture Indicated NO 07/27/22 04:12: White Blood Count 10.1, Red Blood Count 5.28, Hemoglobin 16.1, Hematocrit 51, Mean Corpuscular Volume 96, Mean Corpuscular Hemoglobin 31, Mean Corpuscular Hemoglobin Concent 32, Red Cell Distribution Width 14.6H, Platelet Count 173, Mean Platelet Volume 10.9, Immature Granulocyte % (Auto) 0, Neutrophils (%) (Auto) 90H, Lymphocytes (%) (Auto) 4L, Monocytes (%) (Auto) 5, Eosinophils (%) (Auto) 0, Basophils (%) (Auto) 0, Neutrophils # (Auto) 9.1H, Lymphocytes # (Auto) 0.4L, Monocytes # (Auto) 0.5, Eosinophils # (Auto) 0.0, Basophils # (Auto) 0.0, Immature Granulocyte # (Auto) 0.0, Sodium Level 138, Potassium Level 4.5, Chloride Level 97L, Carbon Dioxide Level 30, Anion Gap 11, Blood Urea Nitrogen 14, Creatinine 0.72, Estimat Glomerular Filtration Rate 87, BUN/Cr eatinine Ratio 19, Glucose Level 155H, Calcium Level 8.6, Troponin I < 0.028, P hosphorus Level 3.4, Magnesium Level 2.6H Laboratory Tests 07/26/22 23:53 07/27/22 04:12 A/P-Cardiology Assessment/Admission Diagnosis R-sided chest pain, likely parapneumonic pleurisy No evidence of ACS - no evidence of ischemia on ECG - troponin: 0.036 followed by <0.028 (this is a negative pattern, ie, no troponin elevation) Chronic A Fib - chronic OAC (apixaban) Ac exac of COPD due to pneumonia Mild BNP elevation: A Fib vs [facility] CHF Discussion and Recomendations * Treat pneumonia * Diuretic as needed * Echo * Monitor labs CORAZON RIVERA MD FACP FAC CCDS Jul 27, 2022 14:56
[2022-07-27] MEDS: DOCUSATE SODIUM 100 MG (COLACE) CAP PO SCH (20:03)
[2022-07-27] MEDS: MILK OF MAGNESIA 400 MG/5 ML 30 ML UDC PO PRN (20:06)
[2022-07-27] MEDS ORDERED: morphine INJ 4 MG/ML 1 ML (VIAL/SYRINGE) IVP PRN (20:30)
[2022-07-28] MEDS: CEFEPIME INJECTION 1,000 MG in NS (IVPB) 50 ML IV SCH ×4 (02:23→20:42)
[2022-07-28] MEDS: RT-ALBUTEROL/IPRATROPIUM 3 ML (DUONEB) VIAL INH SCH ×6 (02:39→22:45)
[2022-07-28 05:00] VITALS: BP 138/79
[2022-07-28 05:03] LABS: BASOPHILS % (AUTO) 0 % (0-10); EOSINOPHILS % (AUTO) 0 % (0-10); HEMATOCRIT 50 % (40-54); HEMOGLOBIN 15.6 g/dL (13.3-17.7); LYMPHOCYTES # (AUTO) 0.2 10^3/uL (1.0-4.0); LYMPHOCYTES % (AUTO) 2 % (12-44); MEAN CORPUSCULAR HEMOGLOBIN 31 pg (25-34); MEAN CORPUSCULAR HGB CONC 31 g/dL (32-36); MEAN CORPUSCULAR VOLUME 99 fL (80-99); MEAN PLATELET VOLUME 10.4 fL (9.0-12.2); MONOCYTES # (AUTO) 0.6 10^3/uL (0.0-1.0); MONOCYTES % (AUTO) 5 % (0-12); NEUTROPHILS # (AUTO) 11.6 10^3/uL (1.8-7.8); NEUTROPHILS % (AUTO) 93 % (42-75); PLATELET COUNT 172 10^3/uL (130-400); WHITE BLOOD COUNT 12.5 10^3/uL (4.3-11.0)
[2022-07-28 05:19] LABS: POTASSIUM 4.8 MMOL/L (3.6-5.0)
[2022-07-28 05:20] LABS: CALCIUM 8.7 MG/DL (8.5-10.1)
[2022-07-28] MEDS: CATHETER FLUSH 10 ML SYR IVP SCH ×3 (05:24→22:00)
[2022-07-28] MEDS: methylPREDNISolone 125 MG (Solu-MEDROL) VIAL IVP SCH (05:24)
[2022-07-28 05:25] LABS: CREATININE SERUM 0.76 MG/DL (0.60-1.30)
[2022-07-28 05:27] LABS: MAGNESIUM 2.9 MG/DL (1.6-2.4)
[2022-07-28] MEDS ORDERED: predniSONE 20 MG TAB PO ONE (07:45)
[2022-07-28 08:00] VITALS: BP 149/85
[2022-07-28] MEDS: DOCUSATE SODIUM 100 MG (COLACE) CAP PO SCH ×2 (08:25→20:20)
[2022-07-28] MEDS: MILK OF MAGNESIA 400 MG/5 ML 30 ML UDC PO PRN (08:43)
--- NOTE | 2022-07-28 09:52 | Progress Note - Cardiology ---
Cardiology SOAP Progress Note Subjective: Sitting up on the side of the bed, family x 2 at the bedside C/O ACW soreness with deep breathing and coughing C/O SOB No c/o palpitations Objective: I&O/Vital Signs 07/28/22 07/28/22 07/28/22 07/28/22 20:00 20:20 22:45 23:44 Temp 36.2 36.6 Pulse 55 72 Resp 16 20 B/P (MAP) 140/84 (102) 140/84 (102) Pulse Ox 95 94 94 97 O2 Delivery Nasal Cannula Nasal Cannula Nasal Cannula O2 Flow Rate 3.00 3.00 3.00 07/28/22 07/29/22 07/29/22 07/29/22 23:47 00:00 01:00 02:42 Temp 36.4 Pulse 56 64 Resp 20 B/P (MAP) 126/73 (90) Pulse Ox 98 95 O2 Delivery Nasal Cannula Nasal Cannula O2 Flow Rate 5.00 5.00 07/29/22 07/29/22 03:45 07:04 Temp 36.6 Pulse 91 Resp 19 B/P (MAP) 133/91 (105) Pulse Ox 96 98 O2 Delivery Nasal Cannula O2 Flow Rate 5.00 07/29/22 00:00 Intake Total 930 ml Balance 930 ml Constitutional: AAO x 3, well-developed, well-nourished, other (sitting up in bed, coughing, appears uncomfortable, as oxygen mask on ) Respiratory: No accessory muscle use; other (Fair air entry, scattered rhonchi and coarse crackles over large airways) Cardiovascular: irregularly irregular, S1 and S2, systolic murmur (soft SYDNI at card base) Gastrointestional: No tender; soft; No guarding, No rebound; audible bowel soun ds Extremities: No clubbing, No cyanosis, No significant edema Neurologic/Psychiatric: oriented x 3, other (moves all limbs equally) Skin: No rash on exposed areas, No ulcerations on exposed areas Results/Procedures: Labs Laboratory Tests 07/29/22 05:20: White Blood Count 13.1H, Red Blood Count 5.10, Hemoglobin 15.5, Hematocrit 50, Mean Corpuscular Volume 98, Mean Corpuscular Hemoglobin 30, Mean Corpuscular Hemoglobin Concent 31L, Red Cell Distribution Width 14.5, Platelet Count 157, Mean Platelet Volume 10.7, Immature Granulocyte % (Auto) 1, Neutrophils (%) (Auto) 88H, Lymphocytes (%) (Auto) 3L, Monocytes (%) (Auto) 9, Eosinophils (%) (Auto) 0, Basophils (%) (Auto) 0, Neutrophils # (Auto) 11.6H, Lymphocytes # (Auto) 0.3L, Monocytes # (Auto) 1.1H, Eosinophils # (Auto) 0.0, Basophils # (A uto) 0.0, Immature Granulocyte # (Auto) 0.1, Sodium Level 138, Potassium Level 4.8, Chloride Level 94L, Carbon Dioxide Level 36H, Anion Gap 8, Blood Urea Nitrogen 22H, Creatinine 0.67, Estimat Glomerular Filtration Rate 89, BUN/Creatinine Ratio 33, Glucose Level 133H, Calcium Level 8.8, Corrected Ca lcium 9.2, Phosphorus Level 2.2L, Magnesium Level 2.6H, Total Bilirubin 0.9, Aspartate Amino Transf (AST/SGOT) 34, Alanine Aminotransferase (ALT/SGPT) 56H, Alkaline Phosphatase 48, Total Protein 6.7, Albumin 3.5 Microbiology 07/27/22 Urine Culture - Final, Complete NO GROWTH 07/27/22 Blood Culture - Preliminary, Resulted No growth A/P: Assessment: R-sided chest pain, likely parapneumonic pleurisy - worse with coughing and deep breathing No evidence of ACS - no evidence of ischemia on ECG - troponin: 0.036 followed by <0.028 (this is a negative pattern, ie, no troponin elevation) Chronic A Fib - chronic OAC (apixaban) Ac exac of COPD due to pneumonia Mild BNP elevation: A Fib vs [facility] CHF Mild hyperthyroidism seen on lab of 07-28-22 - management per medical services Plan: * Management of pneumonia per medical services * Diuretic as needed - give IV Lasix today * Echo today * Monitor labs * Continue OAC for stroke prophylaxis SUDHIR LYN Jul 28, 2022 09:52
[2022-07-28] MEDS ORDERED: APIXABAN 2.5 MG (ELIQUIS) TABLET PO NR (10:30)
[2022-07-28] MEDS ORDERED: FUROSEMIDE 40 MG/4 ML INJ (LASIX) IVP NR (10:30)
[2022-07-28] MEDS ORDERED: QUET25TA35 PO (10:43)
[2022-07-28] MEDS ORDERED: CEPH500C PO (10:43)
[2022-07-28 12:00] VITALS: BP 135/71
--- NOTE | 2022-07-28 12:02 | Progress Note - Cardiology ---
Cardiology SOAP Progress Note Subjective: Persistent cough and shortness of breath and R-sided cp with coughing and deep insp No n/v/d No focal weakness Gen weakness and malaise are present Objective: I&O/Vital Signs 07/28/22 07/28/22 07/28/22 07/28/22 01:00 02:39 05:00 06:47 Temp 36.4 Pulse 59 62 Resp 23 B/P (MAP) 138/79 (98) Pulse Ox 96 97 97 O2 Delivery Nasal Cannula Nasal Cannula Nasal Cannula O2 Flow Rate 3.00 3.00 3.00 07/28/22 07/28/22 07/28/22 07/28/22 07:11 08:00 08:00 10:33 Temp 36.0 Pulse 61 64 Resp 20 B/P (MAP) 149/85 (106) Pulse Ox 96 95 94 O2 Delivery Nasal Cannula Nasal Cannula Nasal Cannula O2 Flow Rate 3.00 3.00 07/27/22 23:59 Intake Total 265 ml Balance 265 ml Constitutional: AAO x 3, well-developed, well-nourished, other (sitting up in bed, coughing, appears uncomfortable, as oxygen mask on ) Respiratory: No accessory muscle use; other (Fair air entry, scattered rhonchi and coarse crackles over large airways) Cardiovascular: irregularly irregular, S1 and S2, systolic murmur (soft SYDNI at card base) Gastrointestional: No tender; soft; No guarding, No rebound; audible bowel sounds Extremities: No clubbing, No cyanosis, No significant edema Neurologic/Psychiatric: oriented x 3, other (moves all limbs equally) Skin: No rash on exposed areas, No ulcerations on exposed areas Results/Procedures: Labs Laboratory Tests 07/28/22 04:55: White Blood Count 12.5H, Red Blood Count 5.09, Hemoglobin 15.6, Hematocrit 50, Mean Corpuscular Volume 99, Mean Corpuscular Hemoglobin 31, Mean Corpuscular Hemoglobin Concent 31L, Red Cell Distribution Width 14.5, Platelet Count 172, Mean Platelet Volume 10.4, Immature Granulocyte % (Auto) 1, Neutrophils (%) (Auto) 93H, Lymphocytes (%) (Auto) 2L, Monocytes (%) (Auto) 5, Eosinophils (%) (Auto) 0, Basophils (%) (Auto) 0, Neutrophils # (Auto) 11.6H, Lymphocytes # (Auto) 0.2L, Monocytes # (Auto) 0.6, Eosinophils # (Auto) 0.0, Basophils # (Auto) 0.0, Immature Granulocyte # (Auto) 0.1, Sodium Level 141, Potassium Level 4.8, Chloride Level 97L, Carbon Dioxide Level 36H, Anion Gap 8, Blood Urea Nitrogen 16, Creatinine 0.76, Estimat Glomerular Filtration Rate 86, BUN/Creatinine Ratio 21, Glucose Level 157H, Calcium Level 8.7, Magnesium Level 2.9H, Thyroid Stimulating Hormone (TSH) 0.21L Microbiology 07/27/22 Blood Culture - Preliminary, Resulted No growth Laboratory Tests 07/26/22 23:53 07/27/22 04:12 07/28/22 04:55 A/P: Assessment: R-sided chest pain, likely parapneumonic pleurisy - worse with coughing and deep breathing No evidence of ACS - no evidence of ischemia on ECG - troponin: 0.036 followed by <0.028 (this is a negative pattern, ie, no troponin elevation) Chronic A Fib - chronic OAC (apixaban) Ac exac of COPD due to pneumonia Mild BNP elevation: A Fib vs ch milton CHF Mild hyperthyroidism seen on lab of 07-28-22 - management per medical services Plan: * Management of pneumonia per medical services * Diuretic as needed - give IV Lasix today * Echo today * Monitor labs * Continue OAC for stroke prophylaxis CORAZON RIVERA MD [facility] Jul 28, 2022 12:02
[2022-07-28] MEDS: HYDROcodone/APAP 5 MG/325 MG (LORTAB) TAB PO PRN (12:24)
--- NOTE | 2022-07-28 15:03 | Progress Note - Hospitalist ---
Subjective HPI/CC On Admission Date Seen by Provider: Jul 28, 2022 Time Seen by Provider: 09:45 Subjective/Events-last exam He is short of breath, but says it is about the same as usual. He is audibly wheezing and his family says this is normal. He denies pain. Focused Exam Lactate Level 07/27/22 00:02: Lactic Acid Level 1.95 Objective Exam Vital Signs Vital Signs Date Time Temp Pulse Resp B/P (MAP) Pulse Ox O2 Delivery O2 Flow Rate FiO2 07/28/22 14:24 96 Nasal Cannula 3.00 07/28/22 13:23 51 07/28/22 08:00 36.0 20 149/85 (106) Capillary Refill : General Appearance: No Apparent Distress, Chronically ill, Obese Respiratory: No Respiratory Distress, Crackles, Wheezing Cardiovascular: Regular Rate, Rhythm, No Murmur Gastrointestinal: Normal Bowel Sounds, Non Tender, Soft Extremity: Normal Inspection, No Pedal Edema Neurologic/Psychiatric: Alert, Normal Mood/Affect Skin: Normal Color, Warm/Dry Results/Procedures Lab Laboratory Tests 07/28/22 04:55 Patient resulted labs reviewed. Assessment/Plan Assessment and Plan Assess & Plan/Chief Complaint Acute on chronic respiratory failure with hypoxia COPD exacerbation Multifocal pneumonia Oxygen requirement at baseline Continue antibiotics Transition to oral steroids MAT protocol Pleuritic chest pain Costochondritis Antitussives Elevated troponin AFib Cardiology following Eliquis Diagnosis/Problems Diagnosis/Problems (1) Afib (2) COPD exacerbation (3) Acute on chronic respiratory failure with hypoxia (4) PNA (pneumonia) ANA LILIA TRUJILLO MD Jul 28, 2022 15:03
[2022-07-28 16:00] VITALS: BP 115/82
[2022-07-28] MEDS: TAMSULOSIN 0.4 MG (FLOMAX) CAP PO SCH (16:14)
[2022-07-28 20:20] VITALS: BP 140/84
[2022-07-28] MEDS: APIXABAN 2.5 MG (ELIQUIS) TABLET PO SCH (20:42)
[2022-07-28 23:44] VITALS: BP 140/84
[2022-07-29] VITALS: BP 126/73
[2022-07-29] MEDS: MILK OF MAGNESIA 400 MG/5 ML 30 ML UDC PO PRN (02:19)
[2022-07-29] MEDS: CEFEPIME INJECTION 1,000 MG in NS (IVPB) 50 ML IV SCH ×4 (02:21→20:43)
[2022-07-29] MEDS: RT-ALBUTEROL/IPRATROPIUM 3 ML (DUONEB) VIAL INH SCH ×6 (02:42→22:09)
[2022-07-29 03:45] VITALS: BP 133/91
[2022-07-29] MEDS: guaiFENesin/DM (ROBITUSSIN DM) 10 ML UDC PO PRN ×3 (03:45→20:58)
[2022-07-29 05:39] LABS: BASOPHILS % (AUTO) 0 % (0-10); EOSINOPHILS % (AUTO) 0 % (0-10); HEMATOCRIT 50 % (40-54); HEMOGLOBIN 15.5 g/dL (13.3-17.7); LYMPHOCYTES # (AUTO) 0.3 10^3/uL (1.0-4.0); LYMPHOCYTES % (AUTO) 3 % (12-44); MEAN CORPUSCULAR HEMOGLOBIN 30 pg (25-34); MEAN CORPUSCULAR HGB CONC 31 g/dL (32-36); MEAN CORPUSCULAR VOLUME 98 fL (80-99); MEAN PLATELET VOLUME 10.7 fL (9.0-12.2); MONOCYTES # (AUTO) 1.1 10^3/uL (0.0-1.0); MONOCYTES % (AUTO) 9 % (0-12); NEUTROPHILS # (AUTO) 11.6 10^3/uL (1.8-7.8); NEUTROPHILS % (AUTO) 88 % (42-75); PLATELET COUNT 157 10^3/uL (130-400); WHITE BLOOD COUNT 13.1 10^3/uL (4.3-11.0)
[2022-07-29] MEDS: CATHETER FLUSH 10 ML SYR IVP SCH ×3 (05:52→22:01)
[2022-07-29] MEDS: predniSONE 20 MG TAB PO SCH (06:02)
[2022-07-29 06:05] LABS: ALBUMIN 3.5 GM/DL (3.2-4.5); BILIRUBIN,TOTAL 0.9 MG/DL (0.1-1.0); CALCIUM 8.8 MG/DL (8.5-10.1); CREATININE SERUM 0.67 MG/DL (0.60-1.30); MAGNESIUM 2.6 MG/DL (1.6-2.4); PHOSPHORUS 2.2 MG/DL (2.3-4.7); POTASSIUM 4.8 MMOL/L (3.6-5.0); TOTAL PROTEIN 6.7 GM/DL (6.4-8.2)
[2022-07-29 07:59] VITALS: BP 138/76
[2022-07-29] MEDS: TAMSULOSIN 0.4 MG (FLOMAX) CAP PO SCH (08:16)
[2022-07-29] MEDS: APIXABAN 2.5 MG (ELIQUIS) TABLET PO SCH ×2 (08:16→20:42)
[2022-07-29] MEDS: DOCUSATE SODIUM 100 MG (COLACE) CAP PO SCH ×2 (08:16→20:42)
[2022-07-29] MEDS ORDERED: TAMSULOSIN 0.4 MG (FLOMAX) CAP PO SCH (09:00)
[2022-07-29] MEDS ORDERED: FUROSEMIDE 40 MG/4 ML INJ (LASIX) IVP SCH (09:00)
--- NOTE | 2022-07-29 10:25 | Progress Note - Cardiology ---
Cardiology SOAP Progress Note Subjective: Sitting up on the side of the bed Family x 2 at the bedside Remains SOB Continues to c/o ACW discomfort with deep breathing and coughing Objective: I&O/Vital Signs 07/29/22 07/29/22 07/30/22 07/30/22 21:49 22:10 00:04 00:30 Temp 36.8 Pulse 67 62 Resp 18 19 B/P (MAP) 131/81 (98) 133/85 (101) Pulse Ox 90 96 96 O2 Delivery Nasal Cannula Nasal Cannula Nasal Cannula O2 Flow Rate 3.00 3.00 3.00 07/30/22 07/30/22 07/30/22 07/30/22 01:00 02:40 03:41 03:45 Temp 36.7 Pulse 50 64 Resp 30 B/P (MAP) 153/101 (118) Pulse Ox 97 98 O2 Delivery Nasal Cannula Nasal Cannula Nasal Cannula O2 Flow Rate 3.00 3.00 3.00 07/30/22 07/30/22 06:50 06:58 Pulse 62 Pulse Ox 95 O2 Delivery Nasal Cannula O2 Flow Rate 3.00 07/29/22 23:59 Intake Total 750 ml Output Total 1300 ml Balance -550 ml Constitutional: AAO x 3, well-developed, well-nourished, other (sitting up in bed, coughing, appears uncomfortable, as oxygen mask on ) Respiratory: No accessory muscle use; other (Fair air entry, scattered rhonchi and coarse crackles over large airways) Cardiovascular: irregularly irregular, S1 and S2, systolic murmur (soft SYDNI at card base) Gastrointestional: No tender; soft; No guarding, No rebound; audible bowel sounds Extremities: No clubbing, No cyanosis, No significant edema Neurologic/Psychiatric: oriented x 3, other (moves all limbs equally) Skin: No rash on exposed areas, No ulcerations on exposed areas Results/Procedures: Labs Laboratory Tests 07/30/22 03:53: White Blood Count 12.4H, Red Blood Count 5.17, Hemoglobin 15.6, Hematocrit 50, Mean Corpuscular Volume 97, Mean Corpuscular Hemoglobin 30, Mean Corpuscular Hemoglobin Concent 31L, Red Cell Distribution Width 14.3, Platelet Count 161, Mean Platelet Volume 10.9, Immature Granulocyte % (Auto) 1, Neutrophils (%) (Auto) 90H, Lymphocytes (%) (Auto) 2L, Monocytes (%) (Auto) 7, Eosinophils (%) (Auto) 0, Basophils (%) (Auto) 0, Neutrophils # (Auto) 11.2H, Lymphocytes # (Auto) 0.3L, Monocytes # (Auto) 0.9, Eosinophils # (Auto) 0.0, Basophils # (Auto) 0.0, Immature Granulocyte # (Auto) 0.1, Sodium Level 138, Potassium Level 5.1H, Chloride Level 91L, Carbon Dioxide Level 36H, Anion Gap 11, Blood Urea Nitrogen 20H, Creatinine 0.67, Estimat Glomerular Filtration Rate 89, BUN/Creatinine Ratio 30, Glucose Level 131H, Calcium Level 8.8, Corrected Calcium 9.2, Phosphorus Level 2.6, Magnesium Level 2.4, Total Bilirubin 0.9, Aspartate Amino Transf (AST/SGOT) 30, Alanine Aminotransferase (ALT/SGPT) 65H, Alkaline Phosphatase 52, Total Protein 6.7, Albumin 3.5 07/30/22 08:00: Potassium Level 4.7 Microbiology 07/27/22 Urine Culture - Final, Complete NO GROWTH 07/27/22 Blood Culture - Preliminary, Resulted No growth A/P: Assessment: R-sided chest pain, likely parapneumonic pleurisy - worse with coughing and deep breathing No evidence of ACS - no evidence of ischemia on ECG - troponin: 0.036 followed by <0.028 (this is a negative pattern, ie, no troponin elevation) Chronic A Fib - chronic OAC (apixaban) Ac exac of COPD due to pneumonia Mild BNP elevation: A Fib vs ch milton CHF Mild hyperthyroidism seen on lab of 07-28-22 - management per medical services Plan: * Management of pneumonia per medical services * Diuretic as needed * Echo pending * Monitor labs * Continue OAC for stroke prophylaxis SUDHIR LYN Jul 29, 2022 10:25
[2022-07-29 12:00] VITALS: BP 147/84
[2022-07-29] MEDS: methylPREDNISolone 40 MG/ML (Solu-MEDROL) VIAL IV SCH ×2 (12:14→18:12)
[2022-07-29] MEDS: HYDROcodone/APAP 5 MG/325 MG (LORTAB) TAB PO PRN ×2 (13:53→20:58)
--- NOTE | 2022-07-29 14:41 | Physical Therapy Progress Note ---
Therapy Progress Note Son declined PT stating he will ambulate with patient in hallway and is ambulating with patient in room independently prior to PT arrival. RN confirms. PT placed O2 tank and NC in room for family to utilize when ambulating with patient in hallway. RN notified. 1 visit/no skill PT indicated RENA PARADA PT Jul 29, 2022 14:40
[2022-07-29 16:00] VITALS: BP 158/105
--- NOTE | 2022-07-29 16:35 | Progress Note - Cardiology ---
Cardiology SOAP Progress Note Subjective: Son by bedside (provided interpretation) Shortness of breath of slowly improving Still cough and has R-sided chest pain with cough and/or deep insp Gen malaise No n/v/d Gen weakness Objective: I&O/Vital Signs 07/29/22 07/29/22 07/29/22 07/29/22 07:04 07:26 07:59 08:00 Temp 36.4 Pulse 69 66 Resp 20 B/P (MAP) 138/76 (96) Pulse Ox 98 98 96 O2 Delivery Nasal Cannula Nasal Cannula Nasal Cannula O2 Flow Rate 5.00 3.00 07/29/22 07/29/22 07/29/22 07/29/22 10:48 11:04 12:00 13:29 Temp 36.5 Pulse 83 82 Resp 18 B/P (MAP) 147/84 (105) Pulse Ox 99 O2 Delivery Nasal Cannula Nasal Cannula Nasal Cannula O2 Flow Rate 5.00 3.00 07/29/22 07/29/22 15:24 16:00 Temp 36.7 Pulse 60 Resp 16 B/P (MAP) 158/105 (122) Pulse Ox 92 99 O2 Delivery Nasal Cannula Nasal Cannula O2 Flow Rate 5.00 07/29/22 00:00 Intake Total 930 ml Balance 930 ml Constitutional: AAO x 3, well-developed, well-nourished, other (sitting up in bed, coughing, appears uncomfortable, as oxygen mask on ) Respiratory: No accessory muscle use; other (Fair air entry, scattered rhonchi and coarse crackles over large airways) Cardiovascular: irregularly irregular, S1 and S2, systolic murmur (soft SYDNI at card base) Gastrointestional: No tender; soft; No guarding, No rebound; audible bowel sounds Extremities: No clubbing, No cyanosis, No significant edema Neurologic/Psychiatric: oriented x 3, other (moves all limbs equally) Skin: No rash on exposed areas, No ulcerations on exposed areas Results/Procedures: Labs Laboratory Tests 07/29/22 05:20: White Blood Count 13.1H, Red Blood Count 5.10, Hemoglobin 15.5, Hematocrit 50, Mean Corpuscular Volume 98, Mean Corpuscular Hemoglobin 30, Mean Corpuscular Hemoglobin Concent 31L, Red Cell Distribution Width 14.5, Platelet Count 157, Mean Platelet Volume 10.7, Immature Granulocyte % (Auto) 1, Neutrophils (%) (Auto) 88H, Lymphocytes (%) (Auto) 3L, Monocytes (%) (Auto) 9, Eosinophils (%) (Auto) 0, Basophils (%) (Auto) 0, Neutrophils # (Auto) 11.6H, Lymphocytes # (Auto) 0.3L, Monocytes # (Auto) 1.1H, Eosinophils # (Auto) 0.0, Basophils # (Auto) 0.0, Immature Granulocyte # (Auto) 0.1, Sodium Level 138, Potassium Level 4.8, Chloride Level 94L, Carbon Dioxide Level 36H, Anion Gap 8, Blood Urea Nitro gen 22H, Creatinine 0.67, Estimat Glomerular Filtration Rate 89, BUN/Creatinine Ratio 33, Glucose Level 133H, Calcium Level 8.8, Corrected Calcium 9.2, Phosphorus Level 2.2L, Magnesium Level 2.6H, Total Bilirubin 0.9, Aspartate Amino Transf (AST/SGOT) 34, Alanine Aminotransferase (ALT/SGPT) 56H, Alkaline Phosphatase 48, Total Protein 6.7, Albumin 3.5 Microbiology 07/27/22 Urine Culture - Final, Complete NO GROWTH 07/27/22 Blood Culture - Preliminary, Resulted No growth A/P: Assessment: R-sided chest pain, likely parapneumonic pleurisy - worse with coughing and deep breathing No evidence of ACS - no evidence of ischemia on ECG - troponin: 0.036 followed by <0.028 (this is a negative pattern, ie, no troponin elevation) Pulmonary hypertension - Echo of 07-28-22: LVEF 55-60%, mild to mod MR and TR, mild AI, PASP 70-75 mmHg Chronic A Fib - chronic OAC (apixaban) Ac exac of COPD due to pneumonia Mild BNP elevation: A Fib vs ch milton CHF Mild hyperthyroidism seen on lab of 07-28-22 - management per medical services Plan: * Management of pneumonia per medical services * Diuretic as needed * Echo results noted above * Monitor labs * Continue OAC for stroke prophylaxis CORAZON RIVERA MD [facility] Jul 29, 2022 16:35
--- NOTE | 2022-07-29 18:02 | Progress Note - Hospitalist ---
Subjective HPI/CC On Admission Date Seen by Provider: Jul 29, 2022 Time Seen by Provider: 09:40 Subjective/Events-last exam He is feeling about the same. He is still short of breath. He is still having chest pain with coughing. Focused Exam Lactate Level 07/27/22 00:02: Lactic Acid Level 1.95 Objective Exam Vital Signs Vital Signs Date Time Temp Pulse Resp B/P (MAP) Pulse Ox O2 Delivery O2 Flow Rate FiO2 07/29/22 16:00 36.7 60 16 158/105 (122) 99 Nasal Cannula 07/29/22 15:24 5.00 Capillary Refill : General Appearance: No Apparent Distress, Chronically ill, Obese Respiratory: No Respiratory Distress, Crackles, Wheezing Cardiovascular: No Murmur, Irregularly Irregular Gastrointestinal: Normal Bowel Sounds, Soft Extremity: Normal Inspection, No Pedal Edema Neurologic/Psychiatric: Alert, No Motor/Sensory Deficits Skin: Normal Color, Warm/Dry Results/Procedures Lab Laboratory Tests 07/29/22 05:20 Patient resulted labs reviewed. Assessment/Plan Assessment and Plan Assess & Plan/Chief Complaint Acute on chronic respiratory failure with hypoxia COPD exacerbation Multifocal pneumonia Oxygen requirement at baseline Continue antibiotics Continue steroids MAT protocol Robitussin as needed Pleuritic chest pain Costochondritis Antitussives Elevated troponin AFib Cardiology following Eliquis Diagnosis/Problems Diagnosis/Problems (1) Acute on chronic respiratory failure with hypoxia Status: Acute (2) COPD exacerbation Status: Acute (3) PNA (pneumonia) Status: Acute (4) Afib Status: Chronic ANA LILIA TRUJILLO MD Jul 29, 2022 18:01
[2022-07-29 21:49] VITALS: BP 131/81
[2022-07-30 00:04] VITALS: BP 133/85
[2022-07-30] MEDS: methylPREDNISolone 40 MG/ML (Solu-MEDROL) VIAL IV SCH (00:39)
[2022-07-30] MEDS: RT-ALBUTEROL/IPRATROPIUM 3 ML (DUONEB) VIAL INH SCH ×4 (02:40→15:13)
[2022-07-30 03:41] VITALS: BP 153/101
[2022-07-30] MEDS: HYDROcodone/APAP 5 MG/325 MG (LORTAB) TAB PO PRN (03:44)
[2022-07-30] MEDS: CEFEPIME INJECTION 1,000 MG in NS (IVPB) 50 ML IV SCH ×3 (03:44→15:36)
[2022-07-30 04:36] LABS: BASOPHILS % (AUTO) 0 % (0-10); EOSINOPHILS % (AUTO) 0 % (0-10); HEMATOCRIT 50 % (40-54); HEMOGLOBIN 15.6 g/dL (13.3-17.7); LYMPHOCYTES # (AUTO) 0.3 10^3/uL (1.0-4.0); LYMPHOCYTES % (AUTO) 2 % (12-44); MEAN CORPUSCULAR HEMOGLOBIN 30 pg (25-34); MEAN CORPUSCULAR HGB CONC 31 g/dL (32-36); MEAN CORPUSCULAR VOLUME 97 fL (80-99); MEAN PLATELET VOLUME 10.9 fL (9.0-12.2); MONOCYTES # (AUTO) 0.9 10^3/uL (0.0-1.0); MONOCYTES % (AUTO) 7 % (0-12); NEUTROPHILS # (AUTO) 11.2 10^3/uL (1.8-7.8); NEUTROPHILS % (AUTO) 90 % (42-75); PLATELET COUNT 161 10^3/uL (130-400); WHITE BLOOD COUNT 12.4 10^3/uL (4.3-11.0)
[2022-07-30 05:00] LABS: ALBUMIN 3.5 GM/DL (3.2-4.5); BILIRUBIN,TOTAL 0.9 MG/DL (0.1-1.0); CALCIUM 8.8 MG/DL (8.5-10.1); CREATININE SERUM 0.67 MG/DL (0.60-1.30); MAGNESIUM 2.4 MG/DL (1.6-2.4); PHOSPHORUS 2.6 MG/DL (2.3-4.7); POTASSIUM 5.1 MMOL/L (3.6-5.0); TOTAL PROTEIN 6.7 GM/DL (6.4-8.2)
[2022-07-30] MEDS: predniSONE 20 MG TAB PO SCH (06:17)
[2022-07-30] MEDS: CATHETER FLUSH 10 ML SYR IVP SCH ×2 (06:17→15:36)
--- NOTE | 2022-07-30 08:37 | Progress Note - Cardiology ---
Cardiology SOAP Progress Note Subjective: Sitting up on the side of the bed Non-productive cough Daughter at the bedside He c/o SOB He c/o ACW pain with deep breathing and coughing Objective: I&O/Vital Signs 07/30/22 07/30/22 07/30/22 07/30/22 00:04 00:30 01:00 02:40 Temp 36.8 Pulse 62 50 Resp 19 B/P (MAP) 133/85 (101) Pulse Ox 96 97 O2 Delivery Nasal Cannula Nasal Cannula O2 Flow Rate 3.00 3.00 07/30/22 07/30/22 07/30/22 07/30/22 03:41 03:45 06:50 06:58 Temp 36.7 Pulse 64 62 Resp 30 B/P (MAP) 153/101 (118) Pulse Ox 98 95 O2 Delivery Nasal Cannula Nasal Cannula Nasal Cannula O2 Flow Rate 3.00 3.00 3.00 07/30/22 07/30/22 08:00 11:06 Pulse Ox 95 92 O2 Delivery Nasal Cannula Nasal Cannula O2 Flow Rate 3.00 3.00 07/30/22 00:00 Intake Total 750 ml Output Total 1300 ml Balance -550 ml Constitutional: AAO x 3, well-developed, well-nourished, other (sitting up in bed, coughing, appears uncomfortable, as oxygen mask on ) Respiratory: No accessory muscle use; other (Fair air entry, scattered rhonchi and coarse crackles over large airways) Cardiovascular: irregularly irregular, S1 and S2, systolic murmur (soft SYDNI at card base) Gastrointestional: No tender; soft; No guarding, No rebound; audible bowel sounds Extremities: No clubbing, No cyanosis, No significant edema Neurologic/Psychiatric: oriented x 3, other (moves all limbs equally) Skin: No rash on exposed areas, No ulcerations on exposed areas Results/Procedures: Labs Laboratory Tests 07/30/22 03:53: White Blood Count 12.4H, Red Blood Count 5.17, Hemoglobin 15.6, Hematocrit 50, Mean Corpuscular Volume 97, Mean Corpuscular Hemoglobin 30, Mean Corpuscular Hemoglobin Concent 31L, Red Cell Distribution Width 14.3, Platelet Count 161, Mean Platelet Volume 10.9, Immature Granulocyte % (Auto) 1, Neutrophils (%) (Auto) 90H, Lymphocytes (%) (Auto) 2L, Monocytes (%) (Auto) 7, Eosinophils (%) (Auto) 0, Basophils (%) (Auto) 0, Neutrophils # (Auto) 11.2H, Lymphocytes # (Auto) 0.3L, Monocytes # (Auto) 0.9, Eosinophils # (Auto) 0.0, Basophils # (Auto) 0.0, Immature Granulocyte # (Auto) 0.1, Sodium Level 138, Potassium Level 5.1H, Chloride Level 91L, Carbon Dioxide Level 36H, Anion Gap 11, Blood Urea Nitrogen 20H, Creatinine 0.67, Estimat Glomerular Filtration Rate 89, BUN/Creatinine Ratio 30, Glucose Level 131H, Calcium Level 8.8, Corrected Calcium 9.2, Phosphorus Level 2.6, Magnesium Level 2.4, Total Bilirubin 0.9, Aspartate Amino Transf (AST/SGOT) 30, Alanine Aminotransferase (ALT/SGPT) 65H, Alkaline Phosphatase 52, Total Protein 6.7, Albumin 3.5 07/30/22 08:00: Potassium Level 4.7 Microbiology 07/27/22 Urine Culture - Final, Complete NO GROWTH 07/27/22 Blood Culture - Preliminary, Resulted No growth A/P: Assessment: R-sided chest pain, likely parapneumonic pleurisy - worse with coughing and deep breathing No evidence of ACS - no evidence of ischemia on ECG - troponin: 0.036 followed by <0.028 (this is a negative pattern, ie, no troponin elevation) Pulmonary hypertension - Echo of 07-28-22: LVEF 55-60%, mild to mod MR and TR, mild AI, PASP 70-75 mmHg Chronic A Fib - chronic OAC (apixaban) Ac exac of COPD due to pneumonia Mild BNP elevation: A Fib vs ch milton CHF - continue diuretics Mild hyperthyroidism seen on lab of 07-28-22 - management per medical services Plan: * Management of pneumonia per medical services * Change Lasix to oral * Monitor labs * Continue OAC for stroke prophylaxis SUDHIR LYN Jul 30, 2022 08:37
[2022-07-30 09:00] VITALS: BP 161/87
[2022-07-30] MEDS ORDERED: FUROSEMIDE 40 MG (LASIX) TAB PO SCH (09:00)
[2022-07-30] MEDS: TAMSULOSIN 0.4 MG (FLOMAX) CAP PO SCH (09:01)
[2022-07-30] MEDS: APIXABAN 2.5 MG (ELIQUIS) TABLET PO SCH (09:01)
[2022-07-30] MEDS: DOCUSATE SODIUM 100 MG (COLACE) CAP PO SCH (09:04)
[2022-07-30] MEDS: MILK OF MAGNESIA 400 MG/5 ML 30 ML UDC PO PRN (09:11)
--- NOTE | 2022-07-30 11:45 | Progress Note - Cardiology ---
Cardiology SOAP Progress Note Subjective: No cp or palp or syncope. Persistent but somewhat improved shortness of breath No n/v/d No swelling No focal weakness Objective: I&O/Vital Signs 07/30/22 07/30/22 07/30/22 07/30/22 00:04 00:30 01:00 02:40 Temp 36.8 Pulse 62 50 Resp 19 B/P (MAP) 133/85 (101) Pulse Ox 96 97 O2 Delivery Nasal Cannula Nasal Cannula O2 Flow Rate 3.00 3.00 07/30/22 07/30/22 07/30/22 07/30/22 03:41 03:45 06:50 06:58 Temp 36.7 Pulse 64 62 Resp 30 B/P (MAP) 153/101 (118) Pulse Ox 98 95 O2 Delivery Nasal Cannula Nasal Cannula Nasal Cannula O2 Flow Rate 3.00 3.00 3.00 07/30/22 07/30/22 08:00 11:06 Pulse Ox 95 92 O2 Delivery Nasal Cannula Nasal Cannula O2 Flow Rate 3.00 3.00 07/30/22 00:00 Intake Total 750 ml Output Total 1300 ml Balance -550 ml Constitutional: AAO x 3, well-developed, well-nourished, other (sitting up in bed, coughing, appears uncomfortable, as oxygen mask on ) Respiratory: No accessory muscle use; other (Fair air entry, scattered rhonchi and coarse crackles over large airways) Cardiovascular: irregularly irregular, S1 and S2, systolic murmur (soft SYDNI at card base) Gastrointestional: No tender; soft; No guarding, No rebound; audible bowel sounds Extremities: No clubbing, No cyanosis, No significant edema Neurologic/Psychiatric: oriented x 3, other (moves all limbs equally) Skin: No rash on exposed areas, No ulcerations on exposed areas Results/Procedures: Labs Laboratory Tests 07/30/22 03:53: White Blood Count 12.4H, Red Blood Count 5.17, Hemoglobin 15.6, Hematocrit 50, Mean Corpuscular Volume 97, Mean Corpuscular Hemoglobin 30, Mean Corpuscular Hemoglobin Concent 31L, Red Cell Distribution Width 14.3, Platelet Count 161, Mean Platelet Volume 10.9, Immature Granulocyte % (Auto) 1, Neutrophils (%) (Auto) 90H, Lymphocytes (%) (Auto) 2L, Monocytes (%) (Auto) 7, Eosinophils (%) (Auto) 0, Basophils (%) (Auto) 0, Neutrophils # (Auto) 11.2H, Lymphocytes # (Auto) 0.3L, Monocytes # (Auto) 0.9, Eosinophils # (Auto) 0.0, Basophils # (Auto) 0.0, Immature Granulocyte # (Auto) 0.1, Sodium Level 138, Potassium Level 5.1H, Chloride Level 91L, Carbon Dioxide Level 36H, Anion Gap 11, Blood Urea N itrogen 20H, Creatinine 0.67, Estimat Glomerular Filtration Rate 89, BUN/Creatinine Ratio 30, Glucose Level 131H, Calcium Level 8.8, Corrected Calcium 9.2, Phosphorus Level 2.6, Magnesium Level 2.4, Total Bilirubin 0.9, Aspartate Amino Transf (AST/SGOT) 30, Alanine Aminotransferase (ALT/SGPT) 65H, Alkaline Phosphatase 52, Total Protein 6.7, Albumin 3.5 07/30/22 08:00: Potassium Level 4.7 Microbiology 07/27/22 Urine Culture - Final, Complete NO GROWTH 07/27/22 Blood Culture - Preliminary, Resulted No growth Laboratory Tests 07/29/22 05:20 07/30/22 03:53 07/30/22 08:00 A/P: Assessment: R-sided chest pain, likely parapneumonic pleurisy - worse with coughing and deep breathing No evidence of ACS - no evidence of ischemia on ECG - troponin: 0.036 followed by <0.028 (this is a negative pattern, ie, no troponin elevation) Pulmonary hypertension - Echo of 07-28-22: LVEF 55-60%, mild to mod MR and TR, mild AI, PASP 70-75 mmHg Chronic A Fib - chronic OAC (apixaban) Ac exac of COPD due to pneumonia Mild BNP elevation: A Fib vs [facility] CHF - continue diuretics Mild hyperthyroidism seen on lab of 07-28-22 - management per medical services Plan: * Management of pneumonia and pulm disease per Medical services * Change Lasix to oral * Monitor labs * Continue OAC for stroke prophylaxis * We recommend Pulmonology consultation for pulm disease and pulm hypertension CORAZON RIVERA MD [facility] Jul 30, 2022 11:45
[2022-07-30] MEDS ORDERED: CEFD300C3 PO (11:56)
[2022-07-30] MEDS ORDERED: PRED10TA22 PO (11:56)
[2022-07-30] MEDS ORDERED: ALBU8.5H9 IH (11:56)
[2022-07-30 12:00] VITALS: BP 163/92
[2022-07-30 13:00] VITALS: BP 163/92
--- NOTE | 2022-07-30 16:10 | Discharge Summary ---
Discharge Summary Hospital Course Was the Problem List Reviewed?: Yes Problems/Dx: (1) Acute on chronic respiratory failure with hypoxia Status: Acute (2) COPD exacerbation Status: Acute (3) PNA (pneumonia) Status: Acute (4) Afib Status: Chronic Hospital Course Date of Admission: Jul 27, 2022 at 01:45 Admission Diagnosis: Acute respiratory failure with hypoxia due to COPD exacerbation and pneumonia Family Physician/Provider: Berta,Local Physician Date of Discharge: 07/30/22 Discharge Diagnosis: Acute respiratory failure with hypoxia due to COPD exacerbation and pneumonia Hospital Course: Narinder Smallwood is an 87 year old male with end-stage COPD AFib, who was admitted with acute respiratory failure with hypoxia due to COPD exacerbation and pneumonia. He was recently discharged from the hospital due to COPD exacerbation. He was admitted with ongoing COPD exacerbation. He was given IV steroids and breathing treatments. He also had a multifocal pneumonia and was treated with IV antibiotics. He was given a course of Omnicef and Prednisone to complete as an outpatient. He was prescribed an Albuterol rescue inhaler. He already had an oxygen concentrator but he was set up with home oxygen 3 L continuously. He was supposed to fly back to [facility] tomorrow, but now is planning to extend his stay. He will establish with [facility] for primary care while he is here. He was discharged home in fair condition. Labs and Pending Lab Test: Laboratory Tests 07/30/22 03:53: White Blood Count 12.4H, Red Blood Count 5.17, Hemoglobin 15.6, Hematocrit 50, Mean Corpuscular Volume 97, Mean Corpuscular Hemoglobin 30, Mean Corpuscular Hemoglobin Concent 31L, Red Cell Distribution Width 14.3, Platelet Count 161, Mean Platelet Volume 10.9, Immature Granulocyte % (Auto) 1, Neutrophils (%) (Auto) 90H, Lymphocytes (%) (Auto) 2L, Monocytes (%) (Auto) 7, Eosinophils (%) (Auto) 0, Basophils (%) (Auto) 0, Neutrophils # (Auto) 11.2H, Lymphocytes # (Auto) 0.3L, Monocytes # (Auto) 0.9, Eosinophils # (Auto) 0.0, Basophils # (Auto) 0.0, Immature Granulocyte # (Auto) 0.1, Sodium Level 138, Potassium Level 5.1H, Chloride Level 91L, Carbon Dioxide Level 36H, Anion Gap 11, Blood Urea Nitrogen 20H, Creatinine 0.67, Estimat Glomerular Filtration Rate 89, BUN/Creatinine Ratio 30, Glucose Level 131H, Calcium Level 8.8, Corrected Calcium 9.2, Phosphorus Level 2.6, Magnesium Level 2.4, Total Bilirubin 0.9, Aspartate Amino Transf (AST/SGOT) 30, Alanine Aminotransferase (ALT/SGPT) 65H, Alkaline Phosphatase 52, Total Protein 6.7, Albumin 3.5 07/30/22 08:00: Potassium Level 4.7 Microbiology 07/27/22 Urine Culture - Final, Complete NO GROWTH 07/27/22 Blood Culture - Preliminary, Resulted No growth Home Meds Active Proair Hfa (Albuterol Sulfate) 90 Mcg Hfa.aer.ad 8.5 Gm IH Q4H PRN 30 Days Prednisone 10 Mg Tab.ds.pk 10 Mg PO DAILY Take 6 tabs(60mg)daily,decrease by 1 tab(10mg)every other day. Cefdinir 300 Mg Capsule 300 Mg PO BID 5 Days Iprat-Albut 0.5-3(2.5) mg/3 ml (Ipratropium/Albuterol Sulfate) 0.5 Mg-3 Mg (2.5 Mg Base)/3 Ml Ampul.neb 3 Ml IH Q4H PRN Reported Quetiapine Fumarate 25 Mg Tablet 25 Mg PO HS Cephalexin 500 Mg Capsule 500 Mg PO BID FILLED 07-24-2022 #6/3 DAY SUPPLY Melatonin 10 Mg Tablet 10 Mg PO HS PRN Eliquis (Apixaban) 5 Mg Tablet 2.5 Mg PO DAILY TAKES OF A 5NG [Enalapr/Lercandipine] 20-10 Tab 1 Ea PO DAILY COMBINATION ENALAPRIL 20MG/LERCARDIPINE 10MG Flomax (Tamsulosin HCl) 0.4 Mg Cap 0.4 Mg PO DAILY Trelegy Ellipta 100-62.5-25 (Fluticasone/Umeclidin/Vilanter) 100-62.5 Blst.w.dev 1 Each IH DAILY Assessment/Pt Instructions See instructions Discharge Planning: >30 minutes discharge planning Discharge Instructions Discharge Diet: Low Sodium Diet Activity as Tolerated: Yes Consultations Cardiology Discharge Physical Examination Vital Signs Vital Signs Date Time Temp Pulse Resp B/P (MAP) Pulse Ox O2 Delivery O2 Flow Rate FiO2 07/30/22 15:13 95 Nasal Cannula 3.00 07/30/22 13:40 80 07/30/22 13:00 16 163/92 (115) 07/30/22 12:00 36.3 General Appearance: No Apparent Distress, Chronically ill, Obese Respiratory: No Respiratory Distress, Crackles, Wheezing Cardiovascular: Regular Rate, Rhythm, No Murmur Gastrointestinal: Normal Bowel Sounds, Soft Extremity: Normal Inspection, No Pedal Edema Skin: Normal Color, Warm/Dry Neurologic/Psychiatric: Alert, Normal Mood/Affect Allergies: Coded Allergies: No Known Drug Allergies (Unverified , 07/20/19) Copy Copies To 1: [facility] [place] Discharge Summary Date of Admission Jul 27, 2022 at 01:45 Date of Discharge Discharge Date: Jul 30, 2022 Discharge Time: 16:02 Admission Diagnosis Acute respiratory failure with hypoxia due to COPD exacerbation and pneumonia Discharge Diagnosis Acute on chronic respiratory failure with hypoxia COPD exacerbation Multifocal pneumonia Pleuritic chest pain Costochondritis Elevated troponin AFib (1) Acute on chronic respiratory failure with hypoxia Status: Acute (2) COPD exacerbation Status: Acute (3) PNA (pneumonia) Status: Acute (4) Afib Status: Chronic ANA LILIA TRUJILLO MD Jul 30, 2022 16:09
== END 2022-07-30 17:49 | disposition home or self-care (01) | DRG 193 ==
LOC: EDUNIT# 23:31 → ER 23:34 → ICU 07-27 01:45 → CSD 07-27 18:22
PROVIDERS: ADMIT Family Medicine; ATTEND Internal Medicine
DX: J18.9 Pneumonia, unspecified organism (principal); J96.21 Acute and chronic respiratory failure with hypoxia; J44.0 Chronic obstructive pulmonary disease with (acute) lower respiratory infection; J44.1 Chronic obstructive pulmonary disease with (acute) exacerbation; I48.20 Chronic atrial fibrillation, unspecified; I50.32 Chronic diastolic (congestive) heart failure; M94.0 Chondrocostal junction syndrome [Tietze]; Z79.01 Long term (current) use of anticoagulants; K59.00 Constipation, unspecified; Z99.81 Dependence on supplemental oxygen; E05.90 Thyrotoxicosis, unspecified without thyrotoxic crisis or storm; Z20.822 Contact with and (suspected) exposure to COVID-19; I27.20 Pulmonary hypertension, unspecified; R77.8 Other specified abnormalities of plasma proteins; Y95 Nosocomial condition; I11.0 Hypertensive heart disease with heart failure
CPT/HCPCS: 36415; 71045; 71275; 74177; 80048; 80053; 81000; 82805; 83605; 83735; 84100; 84132; 84443; 84484; 85007; 85025; 85027; 87040; 87088; 87636; 93005; 93306; 94640; 94664; 94761; 96374; 96375